=== PATIENT | male | born 1960 | race Caucasian/White ===

== ENCOUNTER 2018-09-29 10:50 | Emergency (ER) | payer MEDICAID ==
[~2018-09-29] VITALS: Ht 144.8 cm; Wt 61.7 kg
[~2018-09-29 10:50] MED LIST: ASCO500T93 PO; BISA-246 RC; CALC-1152 PO; CETI-32 PO; CETI10TA71 PO; CLON1TAB PO; CLON1TAB11 PO; FERR-20 PO; FLUT0.057 NS; LACT10SO4 PO; LITH300T7 PO; LOXA25CA PO; LOXA50CA PO; MAGN400S60 PO; MULT-153 PO; NAPH15SO OP; POLY17PD65 PO; SENN-74 PO; TETR15SO92 OP; [UNRECOGNIZED DRUG - CODE] OP; [UNRECOGNIZED DRUG - CODE] PO
--- NOTE | 2018-09-29 10:51 | NUR ---
PT BIBA ALS TO BED 10
[2018-09-29 10:55] VITALS: BP 134/74
--- NOTE | 2018-09-29 10:56 | NUR ---
Patient being evaluated by physician at bedside.
--- NOTE | 2018-09-29 11:11 | NUR ---
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 NO LOC. NO N/V. PT AT BASELINE PER CARGIVER. PT AWAKE AND ALERT, ABLE TO FOLLOW DIRECTIONS. PT NON VERBAL PER CAREGIVER. HX: PROFOUND INTELLECTUAL DISABILITIES, LEGALLY BLIND, CONGENTIAL RUBELLA SYNDROME, NONRHEUMATIC AORTIC VALVE DISORDER, SCAR CONDITIONS AND FIBROSIS OF THE SKIN RX: ZYRTEC, CLONOZEPAM, FERROUS SULFATE, FLONASE, LACTULOSE, LITHIUM CARBONATE, LOXAPINE, MULTIVITAMIN, POLYETHYLENE GLYCOL, PROPANOLOL, SENOKOT, GISELL-VITAMIN D, SYSTANE EYE DROPS, VITAMIN C, TYLENOL, AMOXICILLIN, DULCOLAX, FLEET ENEMA, MOM PT HAS BEEN EVALUATED BY ERMD. TOWNSEND FROM DAY PROGRAM AT BEDSIDE. SIDE RAILS UP X 2.
--- NOTE | 2018-09-29 11:30 | NUR ---
PT RETURNED FROM CT
--- NOTE | 2018-09-29 12:36 | NUR ---
PT REMAINS AWAKE AND ALERT, AT BASELINE. CAREGIVERS AT BEDSIDE. AWAITING DISPOSITION.
--- NOTE | 2018-09-29 13:30 | NUR ---
DR. NEGRON AT BEDSIDE TO SPEAK TO CAREGIVERS AND PT ABOUT DISCHARGE.
--- NOTE | 2018-09-29 13:42 | NUR ---
PT AMBULATED TO RESTROOM AND BACK TO [facility] WITH STEADY GAIT WITH CAREGIVER.
[2018-09-29 13:44] VITALS: BP 118/58
--- NOTE | 2018-09-29 13:44 | NUR ---
Patient discharged with v/s stable. Written and verbal after care instructions given and explained to CAREGIVERS/guardian. CAREGIVERS/Guardian verbalized understanding. Ambulatory WITH steady gait. All questions addressed prior to discharge. Advised to follow up with PMD.
== END 2018-09-29 13:44 | disposition home or self-care (01) ==
LOC: MED 10:50
DX: S09.90XA Unspecified injury of head, initial encounter (principal); H54.8 Legal blindness, as defined in USA; Z79.899 Other long term (current) drug therapy; W22.01XA Walked into wall, initial encounter; Y93.01 Activity, walking, marching and hiking; Y92.89 Other specified places as the place of occurrence of the external cause; Y99.8 Other external cause status
CPT/HCPCS: 70450; 72125; 99284

== ENCOUNTER 2022-01-11 20:13 | Inpatient (IN) | payer MEDICAID ==
[~2022-01-11] VITALS: Ht 142.2 cm; Wt 59.0 kg
[2022-01-11 20:13] VITALS: BP 102/59
[~2022-01-11 20:13] MED LIST changes: -CETI-32 PO; +CETI10TA81 PO; -MULT-153 PO; +MULT-2112 PO
--- NOTE | 2022-01-11 20:13 | NUR ---
ELIJAH FROM FACILITY WITH C/O FEVER, ACETAMINOPHEN 650 MG WAS GIVEN BY CAREGIVER
[2022-01-11] MEDS ORDERED: NACL 0.9% 1,000 ML IV ONE ×2 (21:35)
[2022-01-11 21:52] LABS: BASOPHILS # (AUTO) 0.1 K/uL (0.00-0.22); BASOPHILS % (AUTO) 0.7 % (0.0-2.0); EOSINOPHILS # (AUTO) 0.3 K/uL (0-0.4); HEMATOCRIT 32.6 % (36-52); HEMOGLOBIN 10.8 g/dL (12.0-18.0); LYMPHOCYTES % (AUTO) 9.2 % (20.5-51.1); MEAN CORPUSCULAR HEMOGLOBIN 33 pg (27-31); MEAN CORPUSCULAR HGB CONC 33 g/dL (33-37); MEAN CORPUSCULAR VOLUME 97.7 fL (80-94); MONOCYTES # (AUTO) 0.9 K/uL (0.8-1.0); MONOCYTES % (AUTO) 8.3 % (1.7-9.3); NEUTROPHILS # (AUTO) 8.6 K/uL (1.8-7.7); NEUTROPHILS % (AUTO) 78.8 % (42.2-75.2); PLATELET COUNT (AUTO) 231 K/uL (140-450); RED BLOOD CELL COUNT(AUTO) 3.33 MIL/uL (4.20-6.10); RED CELL DISTRIBUTION WIDTH 12.9 % (11.6-13.7); WHITE BLOOD COUNT (AUTO) 10.9 K/uL (4.8-10.8)
[2022-01-11] MEDS ORDERED: cefTRIAXone 1,000 MG VIAL ONE (22:17)
[2022-01-11 22:32] LABS: ALBUMIN 2.9 g/dL (3.4-5.0); ANION GAP 8.6 (8-16); ASPARTATE AMINOTRANSFERASE 24 U/L (15-37); CARBON DIOXIDE 27.6 mmol/L (21-32); CHLORIDE 104 mmol/L (98-107); CREATININE 1.1 mg/dL (0.6-1.3); GFR ARICAN-AMERICAN 88 mL/min (>90); GLUCOSE 127 mg/dL (74-106); POTASSIUM 4.2 mmol/L (3.5-5.1); SODIUM SERUM 136 mmol/L (136-145); TOTAL BILIRUBIN 0.3 mg/dL (0.0-1.0); UREA NITROGEN, BLOOD 17 mg/dL (7-18)
--- NOTE | 2022-01-11 22:41 | NUR ---
COVID/CLAU SWAB COLLECTED AND WALKED TO LAB
--- NOTE | 2022-01-11 22:58 | NUR ---
# 16 FR Kessler catheter with 10 ml utilizing sterile technique. Immediate return of 400 ml CLOUDY YELLOW urine noted. Bedside drainage bag placed below level of bladder. Urine sample collected and sent to lab. Pt tolerated procedure WELL.
[2022-01-11 23:00] LABS: APPEARANCE,URINE CLEAR (CLEAR); BILIRUBIN,URINE NEGATIVE (NEGATIVE); BLOOD, URINE TRACE-I (NEGATIVE); COLOR,URINE YELLOW (YELLOW); LEUKOCYTE ESTERASE ,URINE TRACE (NEGATIVE); NITRITE, URINE NEGATIVE (NEGATIVE); UGLUCOSE NEGATIVE (NEGATIVE)
[2022-01-11 23:13] LABS: RBC,URINE 0-5 /HPF (0-5)
--- NOTE | 2022-01-12 01:05 | NUR ---
PT SITTING UP IN BED. CALM, ACTING APPROPRIATE. UNLABORED BREATHING.
--- NOTE | 2022-01-12 03:45 | NUR ---
Patient will be admitted to care of DR PARDO. Admited to TELE. Will go to room 120B. Belongings list completed. Report to ALTON TRACY.
--- NOTE | 2022-01-12 03:50 | NUR ---
RECEIVED REPORT FROM ER NURSE FOR CONTINUITY OF CARE. PATIENT IS STABLE. BLIND, LOSS OF HEARING, NON VERBAL, A&O X 0, AORTIC VALVE DISORDER, AND CONGENITAL RUBELLA. CHIEF COMPLAINT WAS FEVER. DIAGNOSIS WAS FEVER, UTI, AND ELEVATED TROPONIN. IV SITE IS LEFT AC 20G WITH NO FLUIDS RUNNING. PATIENT IS LYING ON SIDE WITH ARMS TUCKED BEHIND BACK; IF MOVED PATIENT PUTS HIMSELF BACK IN THAT POSITION. PATIENT MOANS FROM TIME TO TIME. ALL SAFETY MEASURES ARE IN PLACE, CALL LIGHT IS WITHIN REACH. VITALS WERE: BP 159/86, HR 104, O2 94, RR 20, TEMP 98.3. WILL CONTINUE TO MONITOR PATIENT.
[2022-01-12 04:00] VITALS: BP 155/86
[2022-01-12 05:55] LABS: ANION GAP 8.1 (8-16); CARBON DIOXIDE 26.9 mmol/L (21-32)
[2022-01-12 06:14] LABS: BASOPHILS # (AUTO) 0.1 K/uL (0.00-0.22); BASOPHILS % (AUTO) 0.5 % (0.0-2.0); EOSINOPHILS # (AUTO) 0.2 K/uL (0-0.4); EOSINOPHILS % (AUTO) 1.7 % (0.0-4.0); HEMATOCRIT 30.7 % (36-52); HEMOGLOBIN 10.2 g/dL (12.0-18.0); LYMPHOCYTES # (AUTO) 1.4 K/uL (2.0-11.5); LYMPHOCYTES % (AUTO) 11.9 % (20.5-51.1); MEAN CORPUSCULAR HEMOGLOBIN 33 pg (27-31); MEAN CORPUSCULAR HGB CONC 33 g/dL (33-37); MEAN CORPUSCULAR VOLUME 97.5 fL (80-94); NEUTROPHILS # (AUTO) 8.9 K/uL (1.8-7.7); NEUTROPHILS % (AUTO) 76.9 % (42.2-75.2); PLATELET COUNT (AUTO) 222 K/uL (140-450); RED BLOOD CELL COUNT(AUTO) 3.15 MIL/uL (4.20-6.10); RED CELL DISTRIBUTION WIDTH 12.6 % (11.6-13.7); WHITE BLOOD COUNT (AUTO) 11.6 K/uL (4.8-10.8)
[2022-01-12] MEDS ORDERED: LOVENOX 1MG/KG Q12H SUBQ SCH (07:20)
--- NOTE | 2022-01-12 07:30 | NUR ---
RECEIVED REPORT FROM NIGHTSHIFT NURSE LAKE FOR CONTINUITY OF CARE. PT IS CURRENTLY SLEEPING, APHASIC, BLIND AND VERY HARD OF HEARING. PT IS BREATHING EVEN, REGULAR AND UNLABORED ON ROOM AIR. PT HAS MOMIN CATHETER PATENT AND HANGING TO GRAVITY. PT IS INCONTINENT OF THE BOWELS AND BEDBOUND. PT IN STABLE CONDITION.
--- NOTE | 2022-01-12 07:32 | NUR ---
ENDORSED TO MORNING SHIFT FOR CONTINUITY OF CARE. PATIENT IS STABLE.
[2022-01-12 08:00] VITALS: BP 139/82
[2022-01-12] MEDS ORDERED: HYDROcodone/APAP 7.5/325 MG 1 TAB PO PRN (08:30)
[2022-01-12] MEDS ORDERED: ZOLPIDEM 5 MG TAB PO PRN (08:30)
[2022-01-12] MEDS ORDERED: ACETAMINOPHEN 325 MG TAB PO PRN (08:30)
[2022-01-12] MEDS ORDERED: NITROGLYCERIN 0.4 MG TAB SL PRN (08:30)
[2022-01-12] MEDS ORDERED: DOCUSATE SODIUM 100 MG GELCAP PO PRN (08:30)
[2022-01-12] MEDS ORDERED: POTASSIUM CHLORIDE 10 MEQ TABER PO PRN (08:30)
[2022-01-12] MEDS ORDERED: ONDANSETRON 4 MG/2 ML VIAL IM/IVP PRN (08:30)
[2022-01-12] MEDS ORDERED: guaiFENesin DM 200/20 MG-10 ML 10 ML UDC PO PRN (08:30)
[2022-01-12] MEDS ORDERED: LITHIUM CARBONATE 900 MG PO SCH (09:00)
[2022-01-12] MEDS: ENOXAPARIN 60 MG/0.6 ML SYR SUBQ SCH ×2 (09:00→21:00)
[2022-01-12] MEDS ORDERED: ENOXAPARIN 60 MG/0.6 ML SYR SUBQ SCH (09:00)
[2022-01-12 09:23] LABS: PROTHROMBIN TIME 11.3 secs (10.8-13.4)
[2022-01-12 09:33] LABS: CHOL/HDL RATIO 2.9 (1-4.5); MAGNESIUM 1.9 mg/dL (1.8-2.4); PHOSPHORUS 3.2 mg/dL (2.5-4.9); THYROID STIMULATING HORMONE 0.99 uIU/mL (0.34-3.74)
[2022-01-12] MEDS: ACETAMINOPHEN 650 MG SUPP RC PRN (09:42)
--- NOTE | 2022-01-12 09:42 | NUR ---
PER ENGRAVER OPTICAL FRAMES, PT HAD A FEVER OF 100.4. INITIATED COOLING MEASURES WITH ICE PACKS AND MEDICATED WITH PRN TYLENOL SUPPOSITORY.
[2022-01-12] MEDS: METOPROLOL 25 MG TAB PO SCH ×2 (09:43→21:00)
[2022-01-12] MEDS: ECOTRIN 81 MG TABEC PO SCH (09:43)
[2022-01-12] MEDS: lisinopriL 5 MG TAB PO SCH (09:44)
[2022-01-12] MEDS: PANTOPRAZOLE 40 MG TABEC PO SCH (09:57)
--- NOTE | 2022-01-12 11:15 | NUR ---
PT VISUALLY ASSESSED, IN STABLE CONDITION. NO SIGNS OF DISTRESS OR PAIN NOTED.
[2022-01-12 12:00] VITALS: BP 130/56
[2022-01-12] MEDS: PIPERACILLIN/TAZOBACTAM 3.375 GM in DEXTROSE 5% 50 ML IV SCH ×2 (13:09→17:20)
--- NOTE | 2022-01-12 13:41 | NUR ---
STAFF FROM [facility] VISITED PT TO BRING IN LOXAPINE HOME MEDICATIONS. INSERTED 18G IN UPPER LEFT ARM FOR IV ABX DUE TO PT FLEXING ARM FREQUENTLY AND OBSTRUCTING IV IN AC. NO SIGNS OF DISTRESS OR PAIN NOTED.
--- NOTE | 2022-01-12 15:00 | NUR ---
PT VISUALLY ASSESSED, NO SIGNS OF PAIN OR DISTRESS NOTED.
[2022-01-12 16:00] VITALS: BP 113/56
[2022-01-12] MEDS: ATORVASTATIN 20 MG TAB PO SCH (17:20)
--- NOTE | 2022-01-12 17:45 | NUR ---
PT VISUALLY ASSESSED, NO SIGNS OF PAIN OR DISTRESS NOTED.
[2022-01-12 18:48] LABS: BARBITURATE, URINE NEGATIVE ng/ml (NEG <=200); BENZODIAZEPINE, URINE NEGATIVE ng/mL (NEG <=200); CANNABINOID, URINE NEGATIVE ng/mL (NEG <=50); COCAINE, URINE NEGATIVE ng/mL (NEG <=300); OPIATE, URINE NEGATIVE ng/mL (NEG <=2000); PHENCYCLIDINE SCREEN,URINE NEGATIVE ng/mL (NEG <=25)
--- NOTE | 2022-01-12 19:37 | NUR ---
ENDORSED PT TO NIGHTSHIFT NURSE IRIS FOR CONTINUITY OF CARE, PT IN STABLE CONDITION.
[2022-01-12 20:00] VITALS: BP 95/56
[2022-01-12] MEDS: LOXAPINE 25 MG PO SCH (20:00)
[2022-01-12] MEDS: clonazePAM 0.5 MG TAB PO SCH (21:00)
[2022-01-12] MEDS ORDERED: CLONAZEPAM PO SCH (21:00)
[2022-01-13] VITALS: BP 156/53
--- NOTE | 2022-01-13 01:38 | NUR ---
PATIENT ON MONITOR SINUS TACH HR. 105 TEMP. 101 GIVEN TYL 650MG 2300 PATIENT ON ROOM AIR SAT 98% PATIENT IS APHASIC CRUSH PILLS GIVEN WITH APPLE SAUCE.PATIENT HAS F/C DRAINING ROVERTO URINE. NO DISTRESS AT THIS TIME.
[2022-01-13] MEDS: ACETAMINOPHEN 650 MG SUPP RC PRN (03:32)
[2022-01-13 04:00] VITALS: BP 150/52
[2022-01-13] MEDS: PIPERACILLIN/TAZOBACTAM 3.375 GM in DEXTROSE 5% 50 ML IV SCH ×5 (06:00→18:07)
[2022-01-13] MEDS: LOXAPINE 25 MG PO SCH ×2 (07:00→20:00)
[2022-01-13 07:08] LABS: BASOPHILS # (AUTO) 0.1 K/uL (0.00-0.22); BASOPHILS % (AUTO) 0.7 % (0.0-2.0); EOSINOPHILS # (AUTO) 0.4 K/uL (0-0.4); EOSINOPHILS % (AUTO) 4.1 % (0.0-4.0); HEMATOCRIT 30.7 % (36-52); HEMOGLOBIN 10.2 g/dL (12.0-18.0); LYMPHOCYTES # (AUTO) 1.5 K/uL (2.0-11.5); LYMPHOCYTES % (AUTO) 17.1 % (20.5-51.1); MEAN CORPUSCULAR HEMOGLOBIN 32 pg (27-31); MEAN CORPUSCULAR HGB CONC 33 g/dL (33-37); MEAN CORPUSCULAR VOLUME 97.2 fL (80-94); MONOCYTES # (AUTO) 0.9 K/uL (0.8-1.0); NEUTROPHILS # (AUTO) 5.9 K/uL (1.8-7.7); NEUTROPHILS % (AUTO) 68.1 % (42.2-75.2); PLATELET COUNT (AUTO) 220 K/uL (140-450); RED BLOOD CELL COUNT(AUTO) 3.15 MIL/uL (4.20-6.10); RED CELL DISTRIBUTION WIDTH 12.9 % (11.6-13.7); WHITE BLOOD COUNT (AUTO) 8.7 K/uL (4.8-10.8)
--- NOTE | 2022-01-13 07:10 | NUR ---
RECEIVED REPORT FROM NIGHTSHIFT NURSE CLEMONS FOR CONTINUITY OF CARE. PT IS CURRENTLY SLEEPING, APHASIC. PT IS BREATHING EVEN, REGULAR AND UNLABORED ON ROOM AIR. PT HAS MOMIN CATHETER PATENT AND HANGING TO GRAVITY. PT IS INCONTINENT OF THE BOWELS, SKIN INTACT ON BEDREST. PT IN STABLE CONDITION.
[2022-01-13 07:15] LABS: ANION GAP 9.9 (8-16); CREATININE 1.2 mg/dL (0.6-1.3); POTASSIUM 3.9 mmol/L (3.5-5.1)
[2022-01-13 08:00] VITALS: BP 125/76
[2022-01-13 08:07] LABS: FOLIC ACID > 20.00 ng/mL (>3.0)
--- NOTE | 2022-01-13 08:11 | NUR ---
PATIENT HAS BEEN SCREENED AND CATEGORIZED MODERATE NUTRITION RISK. PATIENT WILL BE SEEN WITHIN 3-5 DAYS OF ADMISSION. 01/12/22-01/16/[address]
[2022-01-13] MEDS: LITHIUM CARBONATE 300 MG TAB PO SCH ×3 (09:00→18:06)
[2022-01-13] MEDS: lisinopriL 5 MG TAB PO SCH (09:01)
[2022-01-13] MEDS: ECOTRIN 81 MG TABEC PO SCH (09:02)
[2022-01-13] MEDS: METOPROLOL 25 MG TAB PO SCH ×2 (09:03→21:00)
[2022-01-13] MEDS: PANTOPRAZOLE 40 MG TABEC PO SCH (09:04)
[2022-01-13] MEDS: ENOXAPARIN 60 MG/0.6 ML SYR SUBQ SCH (09:13)
[2022-01-13] MEDS ORDERED: VANCOMYCIN PER PHARMACY MC PRN ×2 (11:00→11:10)
[2022-01-13 12:00] VITALS: BP_SYST 116; BP_SYST 120; BP_DIAS 60; BP_DIAS 62
[2022-01-13] MEDS: VANCOMYCIN 750 MG in DEXTROSE 5% 250 ML IV SCH (13:12)
[2022-01-13 16:00] VITALS: BP 120/60
[2022-01-13] MEDS: ATORVASTATIN 20 MG TAB PO SCH (18:06)
[2022-01-13] MEDS: FERROUS SULFATE 325 MG TABEC PO SCH (18:06)
--- NOTE | 2022-01-13 19:38 | NUR ---
ENDORSED PT TO NIGHTSHIFT NURSE IRIS FOR CONTINUITY CARE. PT IN STABLE CONDITION.
[2022-01-13 20:00] VITALS: BP 107/59
[2022-01-13] MEDS: clonazePAM 0.5 MG TAB PO SCH (21:00)
[2022-01-13 23:28] LABS: FERRITIN 968 ng/mL (30 - 400); TRANSFERRIN 127 mg/dL (200 - 370)
[2022-01-14] VITALS: BP 108/56
--- NOTE | 2022-01-14 00:01 | NUR ---
PATIENT AWAKE APHASIC ON MONITOR SINUS TACH HR. 125. PATIENT WAS CLEANED UP AND LINEN CHANGE. X1 WITH DARK GREEN IN COLOR STOOL. HAD 1400 CC URINE OUT F/C 2200. PATIENT TAKES MEDS WITH CUSTARD CRUSH PILLS. DRINKS WATER WELL WITH STRAW. NO DISTRESS NOTED.
[2022-01-14 04:00] VITALS: BP 125/87
[2022-01-14 05:39] LABS: BASOPHILS # (AUTO) 0.1 K/uL (0.00-0.22); BASOPHILS % (AUTO) 0.7 % (0.0-2.0); EOSINOPHILS # (AUTO) 0.8 K/uL (0-0.4); EOSINOPHILS % (AUTO) 10.8 % (0.0-4.0); HEMATOCRIT 31.4 % (36-52); HEMOGLOBIN 10.5 g/dL (12.0-18.0); LYMPHOCYTES # (AUTO) 1.6 K/uL (2.0-11.5); LYMPHOCYTES % (AUTO) 21.6 % (20.5-51.1); MEAN CORPUSCULAR HEMOGLOBIN 33 pg (27-31); MEAN CORPUSCULAR HGB CONC 33 g/dL (33-37); MEAN CORPUSCULAR VOLUME 97.8 fL (80-94); MONOCYTES # (AUTO) 0.6 K/uL (0.8-1.0); MONOCYTES % (AUTO) 7.7 % (1.7-9.3); NEUTROPHILS # (AUTO) 4.5 K/uL (1.8-7.7); NEUTROPHILS % (AUTO) 59.2 % (42.2-75.2); PLATELET COUNT (AUTO) 220 K/uL (140-450); RED BLOOD CELL COUNT(AUTO) 3.21 MIL/uL (4.20-6.10); RED CELL DISTRIBUTION WIDTH 12.8 % (11.6-13.7); WHITE BLOOD COUNT (AUTO) 7.6 K/uL (4.8-10.8)
[2022-01-14 05:53] LABS: CARBON DIOXIDE 27.8 mmol/L (21-32); CREATININE 1.2 mg/dL (0.6-1.3); POTASSIUM 3.8 mmol/L (3.5-5.1)
[2022-01-14] MEDS: PIPERACILLIN/TAZOBACTAM 3.375 GM in DEXTROSE 5% 50 ML IV SCH ×5 (05:54→17:47)
[2022-01-14] MEDS: VANCOMYCIN 750 MG in DEXTROSE 5% 250 ML IV SCH (05:55)
[2022-01-14] MEDS: LOXAPINE 25 MG PO SCH ×2 (06:41→20:08)
--- NOTE | 2022-01-14 07:30 | NUR ---
RECEIVED PT CARE AND REPORT FROM NOC SHIFT. PT IS RESTING IN BED WITH OU CLOSED ON RIGHT SIDE. NO VISIBLE S/S OF DISTRESS OR DISCOMFORT. DENIES ANY PAIN OR SOB. CALL LIGHT WITHIN REACH, ALL NEEDS MET AT THIS TIME.
[2022-01-14 08:00] VITALS: BP 127/75
--- NOTE | 2022-01-14 08:56 | NUR ---
PT. WITH LOW NIRAV SCALE AT MODERATE TO HIGH RISK, CONTINUE TO FOLLOW PRESSURE INJURY PREVENTION INTERVENTIONS. -POSITIONING: TURN AND REPOSITION PATIENT Q 2H OR SOONER USE PILLOWS TO KEEP BONY PROMINENCES FROM DIRECT CONTACT WITH SURFACES USE REPOSITIONING WEDGES TO PROVIDE 30-DEGREE ANGLE FOR SIDE LYING POSITIONS OFFLOADING OR FOAM DRESSING TO ALL TUBING TO PREVENT MEDICAL DEVICES RELATED PRESSURE INJURY -RE-EVALUATING AND MANAGING INCONTINENCE MONITOR SKIN CONDITION DURING POSITION CHANGE DO NOT MASSAGE REDNESS, BONY PROMINENCES FREQUENT WALTER-CARE AND PROVIDE BARRIER CREAMS PRN IF SOILING MOISTURE CONTROL BY OFFER BED ZIMMER/URINAL /ABSORBENT PAD TO WICK AND HOLD MOISTURE KEEP SKIN DRY AND PROTECT FROM FRICTION -MANAGE FRICTION/SHEAR/MOBILITY KEEP HOB AT THE LOWEST LEVEL OF ELEVATION NO MORE THAN 30 DEGREE UNLESS OTHERWISE CONTRAINDICATED USE LIFT SHEET OR TRANSFER DEVICE TO MOVE PATIENT AND PREVENT LATERAL SHEER. PROTECT HEELS, ELBOWS BONY PROMINENCES WITH SKIN BERRIES OR FOAM DRESSING IF EXPOSED TO FRICTION OFFLOAD BILATERAL HEELS BY PLACING PILLOWS UNDER CALVES AT ALL TIMES, UNLESS OTHERWISE CONTRAINDICATED -PRESSURE REDISTRIBUTION SURFACE THERAPY ANGELA ISOFLEX MATTRESS -NUTRITION: PLEASE FOLLOW RD RECOMMENDATIONS AND OFFER NUTRITION SUPPLEMENTS IF ORDERED. PLEASE CONTACT WOUND CARE NURSE FOR ANY QUESTION AND CHANGE OF WOUND CONDITION.
[2022-01-14] MEDS: ECOTRIN 81 MG TABEC PO SCH (09:45)
[2022-01-14] MEDS: lisinopriL 5 MG TAB PO SCH (09:46)
[2022-01-14] MEDS: METOPROLOL 25 MG TAB PO SCH ×2 (09:46→20:09)
[2022-01-14] MEDS: ENOXAPARIN 40 MG/0.4 ML SYR SUBQ SCH (09:47)
[2022-01-14] MEDS: LITHIUM CARBONATE 300 MG TAB PO SCH ×3 (09:48→17:48)
[2022-01-14] MEDS: PANTOPRAZOLE 40 MG TABEC PO SCH (09:48)
[2022-01-14] MEDS: FERROUS SULFATE 325 MG TABEC PO SCH ×2 (09:48→17:47)
--- NOTE | 2022-01-14 11:10 | NUR ---
DC PLANNIN YRS OLD MALE PATIENT WAS ADMITTED FROM [facility] WITH A DX OF FEVER , UTI AND ELEVATED TROPONIN. TROP ON ARRIVAL 589,631 . TEMP 100.4 PATIENT HAS A HX OF INTELLECTUAL DISABILITY NON-VERBAL AND LEGALLY BLIND. CXR SHOWED CARDIOMEGALY WITH MILD PULMONARY VASCULAR CONGESTION. PCR COVID NEGATIVE. BLOOD AND URINE CULTURE PENDING. ADMINISTERED IVF, IV ABX VANCOMYCIN AND ZOSYN AND CONTINUED HOME MEDS. SEEN BY CARDIO DR MCGOVERN AND ID DR MTZ. DC PLAN AWAITING FOR FINAL CULTURE RESULTS. CM TO FOLLOW Addendum: 01/16/22 at 1210 by Ruthann Jones RN DC PLANNING: STILL AWAITING FOR THE FINAL RESULT AND SENSITIVITY OF BLOOD AND URINE CULTURE . CONTINUE VANCO AND ZOSYN IV ABX. ID, AND CARDIO FOLLOWING. DC PLAN TO RETURN TO [facility] WHEN STABLE. CM TO FOLLOW Addendum: 01/16/22 at 1214 by Ruthann Jones RN DC PLANNING: CALLED [facility] SPOKE WITH MADELAINE STATED IF PATIENT NEEDS IV ABX THEY ARE NOT ABLE TO GIVE IT AND PATIENT HAS TO GO TO SNF AND PREFERRED PATIENT TO GO TO [facility]. CM TO FOLLOW
[2022-01-14 12:00] VITALS: BP 115/63
--- NOTE | 2022-01-14 12:26 | NUR ---
FDI REPORT RECEIVED. FDI EDUCATION NOT APPLICABLE D/T PT FROM SNF. KALINA TORIBIO RD
--- NOTE | 2022-01-14 15:48 | NUR ---
P.T. NOTES P.T. EVAL COMPLETED; REFER TO EVAL FOR DETAILS.
[2022-01-14 16:00] VITALS: BP 112/57
[2022-01-14] MEDS: ATORVASTATIN 20 MG TAB PO SCH (17:47)
--- NOTE | 2022-01-14 18:21 | NUR ---
PT IS RESTING IN BED ON RIGHT SIDE, ALERT AND APHASIC. NO VISIBLE S/S OF DISTRESS, DISCOMFORT, PAIN OR SOB. CALL LIGHT IS WITHIN REACH, ALL NEEDS MET AT THIS TIME. WILL ENDORSE TO NOC SHIFT.
--- NOTE | 2022-01-14 19:30 | NUR ---
RECEIVED REPORT FROM AM SHIFT NURSE FOR CONTINUITY OF CARE. PT AWAKE ON BED, BREATHING EQUAL AND UNLABORED, ON ROOM AIR. NO DISTRESS NOTED. IV ON LAC G 20 AND HERVE G18, SL.MOMIN IN PLACE, DRAINING WELL. ALL PRECAUTIONS IN PLACE. CALL LIGHT WITHIN REACH. WILL CONTINUE TO MONITOR.
[2022-01-14 20:00] VITALS: BP 127/75
[2022-01-14] MEDS: clonazePAM 0.5 MG TAB PO SCH (20:08)
--- NOTE | 2022-01-14 21:00 | NUR ---
SCHEDULED MEDICATIONS GIVEN. PT TOLERATED WELL. NO ACUTE DRUG REACTION NOTED. ALL PRECAUTIONS IN PLACE. WILL CONTINUE TO MONITOR.
[2022-01-15] VITALS: BP 134/77
--- NOTE | 2022-01-15 | NUR ---
SCHEDULED MEDICATIONS GIVEN. PT TOLERATED WELL. NO ACUTE DRUG REACTION NOTED. ALL PRECAUTIONS IN PLACE. WILL CONTINUE TO MONITOR.
[2022-01-15] MEDS: PIPERACILLIN/TAZOBACTAM 3.375 GM in DEXTROSE 5% 50 ML IV SCH ×4 (00:12→18:07)
[2022-01-15] MEDS: VANCOMYCIN 750 MG in DEXTROSE 5% 250 ML IV SCH (00:13)
--- NOTE | 2022-01-15 02:30 | NUR ---
PT CHANGED AND REPOSITIONED. PT TOLERATED WELL. WILL CONTINUE TO MONITOR.
--- NOTE | 2022-01-15 03:21 | NUR ---
SCHEDULED MEDICATIONS GIVEN. PT TOLERATED WELL. NO ACUTE DRUG REACTION NOTED. ALL PRECAUTIONS IN PLACE. WILL CONTINUE TO MONITOR.
--- NOTE | 2022-01-15 03:31 | NUR ---
PATIENT ASLEEP,RESPIRATIONS EVEN AND UNLABORED,NO DISTRESS NOTED
[2022-01-15 04:00] VITALS: BP 103/45
[2022-01-15 06:08] LABS: CARBON DIOXIDE 27.6 mmol/L (21-32); CREATININE 1.2 mg/dL (0.6-1.3); POTASSIUM 3.6 mmol/L (3.5-5.1)
[2022-01-15] MEDS: LOXAPINE 25 MG PO SCH ×2 (06:24→20:00)
[2022-01-15 08:00] VITALS: BP 93/54
--- NOTE | 2022-01-15 08:00 | NUR ---
RECEIVED REPORT FROM REBEKAH DANG FOR CONTINUITY OF CARE. PT LETHARGIC. RESPONSIVE TO TACTILE STIMULI. NO SOB OR RESPIRATORY DISTRESS. ON RA. HOB ELEVATED. PT REPOSITIONED. HERVE #18 TKO. NEEDS ALL MET AT THIS TIME. SAFETY MEASURES IN PLACE.
[2022-01-15] MEDS: lisinopriL 5 MG TAB PO SCH (09:00)
[2022-01-15] MEDS: METOPROLOL 25 MG TAB PO SCH ×2 (09:00→21:00)
[2022-01-15 09:23] LABS: BASOPHILS # (AUTO) 0.1 K/uL (0.00-0.22); BASOPHILS % (AUTO) 0.8 % (0.0-2.0); EOSINOPHILS % (AUTO) 11.1 % (0.0-4.0); HEMATOCRIT 33.6 % (36-52); HEMOGLOBIN 11.2 g/dL (12.0-18.0); LYMPHOCYTES # (AUTO) 1.6 K/uL (2.0-11.5); LYMPHOCYTES % (AUTO) 17.3 % (20.5-51.1); MEAN CORPUSCULAR HEMOGLOBIN 33 pg (27-31); MEAN CORPUSCULAR HGB CONC 33 g/dL (33-37); MEAN CORPUSCULAR VOLUME 98.5 fL (80-94); MONOCYTES # (AUTO) 0.8 K/uL (0.8-1.0); MONOCYTES % (AUTO) 8.6 % (1.7-9.3); NEUTROPHILS # (AUTO) 5.7 K/uL (1.8-7.7); NEUTROPHILS % (AUTO) 62.2 % (42.2-75.2); PLATELET COUNT (AUTO) 258 K/uL (140-450); RED BLOOD CELL COUNT(AUTO) 3.41 MIL/uL (4.20-6.10); RED CELL DISTRIBUTION WIDTH 12.7 % (11.6-13.7); WHITE BLOOD COUNT (AUTO) 9.1 K/uL (4.8-10.8)
[2022-01-15] MEDS: ENOXAPARIN 40 MG/0.4 ML SYR SUBQ SCH (09:56)
[2022-01-15] MEDS: ECOTRIN 81 MG TABEC PO SCH (09:58)
[2022-01-15] MEDS: PANTOPRAZOLE 40 MG TABEC PO SCH (09:58)
[2022-01-15] MEDS: LITHIUM CARBONATE 300 MG TAB PO SCH ×3 (09:59→17:00)
[2022-01-15] MEDS: FERROUS SULFATE 325 MG TABEC PO SCH ×2 (10:01→17:00)
[2022-01-15 12:00] VITALS: BP 103/55
--- NOTE | 2022-01-15 13:00 | NUR ---
PT NOT TOLERATING PUREED FOOD. PT POCKETING FOOD IN MOUTH AND NOT SWALLOWING. PT SUCTIONED WITH MOUTH CLEAR. O2 SATURATION @ 95% AROUND PT'S BASELINE. PT REPOSITIONED, HOB ELEVATED. NEEDS ALL MET AT THIS TIME. SAFETY MEASURES IN PLACE.
[2022-01-15] MEDS: VANCOMYCIN 1,000 MG in DEXTROSE 5% 250 ML IV SCH (13:15)
[2022-01-15 16:00] VITALS: BP 118/69
[2022-01-15] MEDS: ATORVASTATIN 20 MG TAB PO SCH (17:00)
--- NOTE | 2022-01-15 18:00 | NUR ---
CONTACTED MD REGARDING PT POCKETING FOOD IN MOUTH. NEW ORDER FOR NPO AND ST EVALUATION.
--- NOTE | 2022-01-15 18:11 | NUR ---
1800 DOSE OF ZOSYN ADMIN 1VPB ORDERED. LEFT UPPER ARM IV SITE CLEAN, FREE OF SIGNS OF INFECTION, WITH DRESSING DRY & INTACT.
--- NOTE | 2022-01-15 18:59 | NUR ---
REPORT GIVEN TO NIGHTSSDKAUSHAL RNCANDELARIO FOR CONTINUITY OF CARE.
--- NOTE | 2022-01-15 19:00 | NUR ---
RECEIVED REPORT FROM CANDELARIO DANG, PATIENT WAS STABLE AT CHANGE OF SHIFT. PATIENT WAS RECEIVED IN BED ASLEEP NON VERBAL. PATIENT IS BLIND AND NURSING WAS SPEAKING TO PATIENT FOR MENTAL STIMULATION. SIDE RAILS UP X 4 FOR SAFETY. NURSING NOTED PATIENT BREATHING UNLABORED ON ROOM AIR. PATIENT IS NOW NPO STATUS BECAUSE OF PREVIOUS SHIFT NOTED DIFFICULTY SWALLOWING AND SWALLOW EVALUATION TOMORROW. NURSING WILL FRQUENT THE ROOM TO ANTICIPATE NEED AND KEEP CLEAN AND DRY. CALL LIGHT WITHIN REACH AVAILABLE ENTERTAINMENT PURPOSE. NO FACIAL GRIMACING OF PAIN/DISCOMFORT. [email or web address]
[2022-01-15 20:00] VITALS: BP 113/70
[2022-01-15] MEDS: clonazePAM 0.5 MG TAB PO SCH (21:00)
--- NOTE | 2022-01-15 21:48 | NUR ---
PATIENT REMAINS AWAKE WITH TV ON TO LISTEN. SIDE RAILS UP X 4. CALL LIGHT WITHIN REACH FOR ASSISTANCE. NPO AND NOT ORAL MEDIATIONS GIVEN BECAUSE OF SWALLOW EVALUATION FOR TOMORROW. NURSING WILL MAKE ROUNDS TO ANTICIPATE NEEDS OR ASSISTANCE. [email or web address]
--- NOTE | 2022-01-15 23:50 | NUR ---
PATIENT WAS CHANGED IN POSITION IN THE BED. PATIENT REMAINS CLEAN AND DRY. NO NOTED INCIDENT OF PAIN. NOTED INCIDENT OR RESPIRATORY DISTRESS. REMAINS ASLEEP AT THIS TIME. SIDE RAILS UP X 4. CALL LIGHT WITHIN REACH FOR TV. NURSING WILL MAKE ROUNDS TO ANTICIPATE NEEDS OR ASSISTANCE. [email or web address]
[2022-01-16] VITALS: BP 113/70
--- NOTE | 2022-01-16 | NUR ---
PATIENT IN BED MUMBLES WHEN HIS NAME IS CALLED. SIDE RAILS UP X 4. CALL LIGHT WITHIN REACH FOR ENTERTAINMENT. NURSING WILL MAKE ROUNDS TO ANTICIPATE NEEDS OR ASSISTANCE. [email or web address]
[2022-01-16] MEDS: VANCOMYCIN 1,000 MG in DEXTROSE 5% 250 ML IV SCH ×2 (01:00→11:59)
[2022-01-16] MEDS: PIPERACILLIN/TAZOBACTAM 3.375 GM in DEXTROSE 5% 50 ML IV SCH ×5 (01:01→23:37)
--- NOTE | 2022-01-16 02:45 | NUR ---
PATIENT REMAINS ASLEEP AT THIS TIME. SIDE RAILS UP X 4. CALL LIGHT WITHIN REACH FOR LISTENING TO THE TV. PATIENT MOMIN URINE OUT PUT WAS NOTED YELLOW WITH SENTIMENT. CHEST RISING AND FALLING EVENLY. NO NOTED FACIAL GRIMACING TO INDICATE PAIN. PATIENT REMAINS CLEAN AND DRY AT THIS TIME. NURSING WILL MAKE ROUNDS TO ANTICIPATE NEEDS OR ASSISTANCE. [email or web address]
[2022-01-16 04:00] VITALS: BP 121/64
--- NOTE | 2022-01-16 05:34 | NUR ---
NURSING WITH PRODUCTION MACHINE TENDER CHANGED PATIENT AND TOTAL CARE. HAD NO NOTE BOWEL MOVEMENTS. REPOSITIONED AND HEAD OF BED ELEVATED TO PREVENT ASPIRATION. SIDE RAILS UP X 4 FOR SAFETY. NO NOTED SEIZURE ACTIVITY AT THIS TIME. NO FACIAL GRIMACING FOR PAIN. NO NOTED RESPIRATORY DISTRESS. CALL LIGHT IS USED FOR AUDIO STIMULATION. NURSING WILL FREQUENT THIS ROOM FOR ANTICIPATED NEEDS. [email or web address]
[2022-01-16 05:45] LABS: BASOPHILS # (AUTO) 0.1 K/uL (0.00-0.22); BASOPHILS % (AUTO) 0.8 % (0.0-2.0); EOSINOPHILS # (AUTO) 0.9 K/uL (0-0.4); EOSINOPHILS % (AUTO) 9.9 % (0.0-4.0); HEMATOCRIT 33.4 % (36-52); HEMOGLOBIN 11.1 g/dL (12.0-18.0); LYMPHOCYTES # (AUTO) 1.2 K/uL (2.0-11.5); LYMPHOCYTES % (AUTO) 13.1 % (20.5-51.1); MEAN CORPUSCULAR HEMOGLOBIN 33 pg (27-31); MEAN CORPUSCULAR HGB CONC 33 g/dL (33-37); MEAN CORPUSCULAR VOLUME 97.8 fL (80-94); MONOCYTES # (AUTO) 0.8 K/uL (0.8-1.0); MONOCYTES % (AUTO) 8.4 % (1.7-9.3); NEUTROPHILS # (AUTO) 6.3 K/uL (1.8-7.7); NEUTROPHILS % (AUTO) 67.8 % (42.2-75.2); PLATELET COUNT (AUTO) 266 K/uL (140-450); RED BLOOD CELL COUNT(AUTO) 3.41 MIL/uL (4.20-6.10); RED CELL DISTRIBUTION WIDTH 12.9 % (11.6-13.7); WHITE BLOOD COUNT (AUTO) 9.3 K/uL (4.8-10.8)
[2022-01-16 06:19] LABS: ANION GAP 10.3 (8-16); CARBON DIOXIDE 27.5 mmol/L (21-32); CREATININE 1.4 mg/dL (0.6-1.3); POTASSIUM 3.8 mmol/L (3.5-5.1)
[2022-01-16] MEDS: LOXAPINE 25 MG PO SCH ×2 (07:00→20:42)
--- NOTE | 2022-01-16 07:21 | NUR ---
PATIENT WAS ENDORSED TO MARV RN, PATIENT WAS STABLE AT CHANGE OF SHIFT. [email or web address]
--- NOTE | 2022-01-16 07:30 | NUR ---
RECEIVED REPORT FROM DALE WELCH. PT AWAKE AND ALERT. NO SOB NOTED. HOB ELEVATED. RR EVEN & UNLABORED. ON RA. PT IS NPO. MOMIN VIA GRAVITY. RAC #20 AND HERVE #18 SL. NEEDS ALL MET AT THIS TIME. SAFETY MEASURES IN PLACE.
[2022-01-16] MEDS: FERROUS SULFATE 325 MG TABEC PO SCH ×2 (07:48→16:27)
[2022-01-16 08:00] VITALS: BP 148/68
[2022-01-16] MEDS: ENOXAPARIN 40 MG/0.4 ML SYR SUBQ SCH (08:48)
[2022-01-16] MEDS: ECOTRIN 81 MG TABEC PO SCH (08:54)
[2022-01-16] MEDS: METOPROLOL 25 MG TAB PO SCH ×2 (08:54→20:42)
[2022-01-16] MEDS: PANTOPRAZOLE 40 MG TABEC PO SCH (08:54)
[2022-01-16] MEDS: LITHIUM CARBONATE 300 MG TAB PO SCH ×3 (08:54→16:27)
[2022-01-16] MEDS: lisinopriL 5 MG TAB PO SCH (08:55)
--- NOTE | 2022-01-16 12:00 | NUR ---
VANCOMYCIN HELD. VANCO TROUGH @ 28.3.
--- NOTE | 2022-01-16 14:39 | NUR ---
01/16/22 RD INITIAL ASSESSMENT COMPLETED PLEASE REFER TO NUTRITION ASSESSMENT UNDER CARE ACTIVITY FOR ESTIMATED NUTRITIONAL NEEDS. 1. RECOMMEND FULL LIQUID DIET PER SLT RECOMMENDATIONS 2. RECOMMEND ENSURE BID FOR NUTRITION SUPPORT 3. RD TO FOLLOW-UP 2-3 DAYS, HIGH RISK KALINA TORIBIO RD
[2022-01-16 16:00] VITALS: BP 132/74
[2022-01-16] MEDS: ATORVASTATIN 20 MG TAB PO SCH (16:27)
--- NOTE | 2022-01-16 17:30 | NUR ---
MD ORDER FOR FULL THIN LIQUID DIET. 1:1 FEEDER.
--- NOTE | 2022-01-16 19:20 | NUR ---
REPORT GIVEN TO NIGHTSHIFT NURSE, FOR CONTINUITY OF CARE.
--- NOTE | 2022-01-16 19:21 | NUR ---
RECEIVED BEDSIDE REPORT FROM DAY RN. PT IS ZOFIA APHASIC TRACKS NURSE. HX CEREBRAL PALSY. RESPIRATIONS ARE EQUAL AND UNLABORED ON ROOM AIR. SKIN IS WARM DRY AND INTACT. MOMIN CATH IN PLACE. PT IS BEDBOUND. IV ON RAC 20G AND LAC 18G SL. POC REVIEWED WITH PT. PT UNABLE TO COMPREHEND. SAFETY MEASURES ARE IN PLACE. WILL CONTINUE TO MONITOR.
[2022-01-16 20:00] VITALS: BP 127/73
[2022-01-16] MEDS: clonazePAM 0.5 MG TAB PO SCH (20:39)
--- NOTE | 2022-01-16 20:42 | NUR ---
VSS. BP 127/73 104BPM AUDREY LOPRESSOR GIVEN ALL AUDREY MEDICATIONS CRUSH AND MIXED WITH APPLE JUICE PT TOLERATED WELL. PT WAS REPOSITION FOR COMFORT. ALL SAFETY MEASURES ARE IN PLACE.
--- NOTE | 2022-01-16 22:07 | NUR ---
PT OBSERVED RESTING IN BED. CHEST RISE AND FALL NOTED. PT TRACKS NURSE. FLACC 0. SAFETY MEASURES ARE IN PLACE. WILL CONTINUE TO MONITOR.
--- NOTE | 2022-01-17 00:10 | NUR ---
ROUNDS MADE. PT APPEARS TO BE ASLEEP WITH EYES CLOSED. CHEST RISE AND FALL NOTED. WILL CONTINUE TO MONITOR.
--- NOTE | 2022-01-17 02:03 | NUR ---
ROUNDS MADE. PT APPEARS TO BE ASLEEP WITH EYES CLOSED. CHEST RISE AND FALL NOTED. WILL CONTINUE TO MONITOR.
[2022-01-17 04:00] VITALS: BP 132/66
--- NOTE | 2022-01-17 04:00 | NUR ---
VITAL SIGNS ARE WITHIN NORMAL LIMITS, WILL CONTINUE TO MONITOR.
[2022-01-17 06:04] LABS: BASOPHILS # (AUTO) 0.1 K/uL (0.00-0.22); BASOPHILS % (AUTO) 0.8 % (0.0-2.0); EOSINOPHILS # (AUTO) 0.6 K/uL (0-0.4); HEMATOCRIT 33.2 % (36-52); HEMOGLOBIN 11.1 g/dL (12.0-18.0); LYMPHOCYTES # (AUTO) 1.4 K/uL (2.0-11.5); LYMPHOCYTES % (AUTO) 15.1 % (20.5-51.1); MEAN CORPUSCULAR HEMOGLOBIN 33 pg (27-31); MEAN CORPUSCULAR HGB CONC 33 g/dL (33-37); MEAN CORPUSCULAR VOLUME 97.4 fL (80-94); MONOCYTES # (AUTO) 0.7 K/uL (0.8-1.0); MONOCYTES % (AUTO) 7.9 % (1.7-9.3); NEUTROPHILS # (AUTO) 6.3 K/uL (1.8-7.7); NEUTROPHILS % (AUTO) 69.2 % (42.2-75.2); PLATELET COUNT (AUTO) 287 K/uL (140-450); RED BLOOD CELL COUNT(AUTO) 3.41 MIL/uL (4.20-6.10); RED CELL DISTRIBUTION WIDTH 13.1 % (11.6-13.7)
[2022-01-17] MEDS: LOXAPINE 25 MG PO SCH ×2 (06:07→20:44)
[2022-01-17] MEDS: PIPERACILLIN/TAZOBACTAM 3.375 GM in DEXTROSE 5% 50 ML IV SCH (06:07)
[2022-01-17 06:27] LABS: ANION GAP 8.8 (8-16); CARBON DIOXIDE 28.6 mmol/L (21-32); CREATININE 1.2 mg/dL (0.6-1.3); POTASSIUM 3.4 mmol/L (3.5-5.1)
--- NOTE | 2022-01-17 07:30 | NUR ---
BEDSIDE REPORT GIVEN TO DAY RN. PT IN STABLE CONDITION.
--- NOTE | 2022-01-17 07:30 | NUR ---
RECEIVED REPORT FROM FOREIGN BANKNOTE TELLER TRADER NURSE: PT RECEIVED ASLEEP IN BED BUT EASILY AROUSED--ALERT WHEN AROUSED. PT BREATHING EFFORTLESSLY ON ROOM AIR. IV ACCESS SITES INTACT AT LEFT ANTECUBITAL AREA (SALINE LOCK) AND LEFT UPPER ARM, WITH NS INFUSING AT 5 ML/HR TO KEEP VEIN OPEN. MOMIN CATHETER IN PLACE, DRAINING YELLOW URINE. CALL LIGHT WITHIN REACH OF PT.
[2022-01-17 08:00] VITALS: BP 106/64
[2022-01-17] MEDS: FERROUS SULFATE 325 MG TABEC PO SCH ×2 (08:00→17:00)
[2022-01-17] MEDS ORDERED: VANCOMYCIN 1,000 MG in DEXTROSE 5% 250 ML IV SCH (08:00)
[2022-01-17] MEDS: LITHIUM CARBONATE 300 MG TAB PO SCH ×3 (09:00→17:00)
[2022-01-17] MEDS: ECOTRIN 81 MG TABEC PO SCH (09:00)
[2022-01-17] MEDS: PANTOPRAZOLE 40 MG TABEC PO SCH (09:00)
[2022-01-17] MEDS: METOPROLOL 25 MG TAB PO SCH ×2 (09:00→21:19)
[2022-01-17] MEDS: ENOXAPARIN 40 MG/0.4 ML SYR SUBQ SCH (09:56)
[2022-01-17] MEDS: lisinopriL 5 MG TAB PO SCH (10:00)
--- NOTE | 2022-01-17 10:00 | NUR ---
AM MEDS ADMIN ORDERED. PATIENT FED AND ATE 80% OF FULL LIQUID BREAKFAST.
[2022-01-17 12:00] VITALS: BP_SYST 106; BP_SYST 110; BP_DIAS 62; BP_DIAS 63
--- NOTE | 2022-01-17 12:00 | NUR ---
VANCOMYCIN IV DISCONTINUED AND ROCEPHIN IV STARTED ORDERED.
--- NOTE | 2022-01-17 14:00 | NUR ---
PATIENT ATE ONLY SMALL AMOUNT OF FULL LIQUID LUNCH THEN ASKED BY MARION IN ULTRASOUND TO KEEP PATIENT NPO EXCEPT FOR MEDS IN ORDER FOR ABDOMINAL ULTRASOUND. PM MEDS GIVEN EXCEPT FOR FERROUS SULFATE, TO MINIMIZE GI RISKS SINCE PATIENT NEEDED TO BE NPO. DR PARDO MADE AWARE.
[2022-01-17 16:00] VITALS: BP 106/63
[2022-01-17] MEDS: ATORVASTATIN 20 MG TAB PO SCH (17:00)
--- NOTE | 2022-01-17 17:00 | NUR ---
CONTACTED ULTRASOUND AND WAS INFORMED THAT PATIENT'S ULTRASOUND IS STILL SCHEDULED TO BE DONE THIS PM. PATIENT REMAINS NPO EXCEPT FOR MEDS.
--- NOTE | 2022-01-17 19:35 | NUR ---
PATIENT IN BED SHOWING NO SIGNS OF PAIN. CALL LIGHT PLACED WITHIN REACH. REPORTED TO KELLY MACHINE OPERATOR NURSE FOR CONTINUITY OF CARE.
--- NOTE | 2022-01-17 19:45 | NUR ---
REPORT GIVEN BY AM RN. RECEIVED PATIENT WITH EYES CLOSED, AROUSABLE BY VERBAL STIMULI. NO S/SX OF P[AIN NOR DISCOMFORT. NO ACUTE RESPIRATORY DISTRESS NOTED. SKIN WARM AND DRY TO TOUCH. ON BEDREST, MOMIN CATHETER IN PLACE DRAINING YELLOW URINE BY GRAVITY, BED IN THE LOWEST AND LOCKED POSITION FOR SAFETY, CALL LIGHT WITHIN REACH.
--- NOTE | 2022-01-17 20:44 | NUR ---
HEAD OF THE BED AT 35 DEGREES, DUE MEDICATIONS GIVEN ORDERED, PATIENT ABLE TO SWALLOW WITHOUT DIFFICULTY. NO COUGHING NOTED.
[2022-01-17] MEDS: clonazePAM 0.5 MG TAB PO SCH (21:17)
--- NOTE | 2022-01-17 21:19 | NUR ---
BP 94/49, INFORMED LEIGHA NN SWARTZ TO HOLD LOPRESSOR 25 MG FOR TONIGHT.
[2022-01-18] VITALS: BP 98/43
--- NOTE | 2022-01-18 | NUR ---
PATIENT HAD A BOWEL MOVEMENT X 1 MODERATE BROWN FORMED STOOL, CLEANED PATIENT, MADE COMFORTABLE IN BED. CALL LIGHT REMAINED WITHIN REACH.
[2022-01-18] MEDS: LOXAPINE 25 MG PO SCH (06:06)
--- NOTE | 2022-01-18 06:16 | NUR ---
AM CARE RENDERED. NO S/SX OF PAIN. NO ACUTE DISTRESS NOTED. ALL NEEDS ATTENDED TO. SAFETY PRECAUTIONS MAINTAINED DURING THE SHIFT, CALL LIGHT REMAINED WITHIN REACH. WILL ENDORSE PLAN OF CARE TO AM RN.
[2022-01-18 06:31] LABS: ANION GAP 8.3 (8-16); CARBON DIOXIDE 29.3 mmol/L (21-32); CREATININE 1.2 mg/dL (0.6-1.3); POTASSIUM 3.6 mmol/L (3.5-5.1)
[2022-01-18 06:45] LABS: BASOPHILS # (AUTO) 0.1 K/uL (0.00-0.22); BASOPHILS % (AUTO) 0.6 % (0.0-2.0); EOSINOPHILS # (AUTO) 0.9 K/uL (0-0.4); EOSINOPHILS % (AUTO) 9.8 % (0.0-4.0); HEMATOCRIT 33.6 % (36-52); LYMPHOCYTES # (AUTO) 1.5 K/uL (2.0-11.5); LYMPHOCYTES % (AUTO) 16.9 % (20.5-51.1); MEAN CORPUSCULAR HEMOGLOBIN 32 pg (27-31); MEAN CORPUSCULAR HGB CONC 33 g/dL (33-37); MONOCYTES # (AUTO) 0.7 K/uL (0.8-1.0); NEUTROPHILS # (AUTO) 5.9 K/uL (1.8-7.7); NEUTROPHILS % (AUTO) 64.7 % (42.2-75.2); PLATELET COUNT (AUTO) 270 K/uL (140-450); RED BLOOD CELL COUNT(AUTO) 3.43 MIL/uL (4.20-6.10); RED CELL DISTRIBUTION WIDTH 13.3 % (11.6-13.7); WHITE BLOOD COUNT (AUTO) 9.1 K/uL (4.8-10.8)
--- NOTE | 2022-01-18 07:20 | NUR ---
RECEIVED REPORT FROM ENVELOPE PRESS OPERATOR NURSE FOR CONTINUITY OF CARE. PT ASLEEP IN BED. BREATHING SYMMETRICAL ON ROOM AIR. FLACC O. MOMIN CATHETER INTACT AND PATENT DRAINING DARK YELLOW URINE. LAC 20G ON SALINE LOCK. CALL LIGHT WITHIN REACH. ALL SAFETY MEASURES IN PLACE.
[2022-01-18 08:00] VITALS: BP 108/59
[2022-01-18] MEDS: METOPROLOL 25 MG TAB PO SCH (09:00)
[2022-01-18] MEDS: lisinopriL 5 MG TAB PO SCH (09:00)
[2022-01-18] MEDS: FERROUS SULFATE 325 MG TABEC PO SCH (09:28)
[2022-01-18] MEDS: LITHIUM CARBONATE 300 MG TAB PO SCH ×2 (09:29→13:46)
[2022-01-18] MEDS: ECOTRIN 81 MG TABEC PO SCH (09:29)
[2022-01-18] MEDS: PANTOPRAZOLE 40 MG TABEC PO SCH (09:29)
[2022-01-18] MEDS: ENOXAPARIN 40 MG/0.4 ML SYR SUBQ SCH (09:46)
--- NOTE | 2022-01-18 09:46 | NUR ---
SCHEDULED AM MEDICATIONS GIVEN ORDERED.
[2022-01-18] MEDS ORDERED: AMOX-999 PO (11:03)
[2022-01-18 13:04] VITALS: BP 108/59
--- NOTE | 2022-01-18 13:39 | NUR ---
NOTED PT'S IV LINE PULLED OUT.
--- NOTE | 2022-01-18 13:41 | NUR ---
PT FOR DISCHARGE, CALLED [facility], NO ANSWER. LEFT VOICE MESSAGE, AWAITING TO CALL BACK.
--- NOTE | 2022-01-18 14:26 | NUR ---
TRIED CALLING AGAIN TYRONE AND MADELAINE, STILL UNABLE TO REACH. VOICE MESSAGE LEFT. CALLED MERGED WITH [facility] [phone] SPOKE WITH JACOBO AND GAVE ALEJANDRA RN NUMBER, CALLED ALEJANDRA UNABLE TO LEAVE VOICE MESSAGE. JACOBO WILL ALSO TRY TO CALL TYRONE/MADELAINE
--- NOTE | 2022-01-18 15:49 | NUR ---
CLARIFIED WITH DR CASTRO REGARDING PT'S MOMIN CATHETER, PER MD TO REMOVE. REMOVED MOMIN CATHETER, PT TOLERATED WELL.
--- NOTE | 2022-01-18 15:49 | NUR ---
DISCHARGED PT TO [facility] PICKED UP BY [facility] VIA GURNEY ACCOMPANIED BY 2 STAFF, WITH PAPERWORKS AND BELONGINGS AND MEDICATION FROM HOME. IN STABLE CONDITION.
== END 2022-01-18 15:55 | DRG 720 ==
LOC: MED 20:13 → MTU 01-12 00:07 → MMU 01-12 04:40
PROVIDERS: ADMIT Student in an Organized Health Care Education/Training Program; ATTEND Student in an Organized Health Care Education/Training Program
DX: A40.8 Other streptococcal sepsis (principal); I21.4 Non-ST elevation (NSTEMI) myocardial infarction; E44.0 Moderate protein-calorie malnutrition; I51.7 Cardiomegaly; D53.9 Nutritional anemia, unspecified; R62.50 Unspecified lack of expected normal physiological development in childhood; N39.0 Urinary tract infection, site not specified; I25.10 Atherosclerotic heart disease of native coronary artery without angina pectoris; Z20.822 Contact with and (suspected) exposure to COVID-19; G40.909 Epilepsy, unspecified, not intractable, without status epilepticus; F79 Unspecified intellectual disabilities; Z95.1 Presence of aortocoronary bypass graft; Z68.29 Body mass index [BMI] 29.0-29.9, adult; Z79.899 Other long term (current) drug therapy
CPT/HCPCS: 36415; 51702; 71045; 76700; 80048; 80053; 80178; 80202; 80305; 81001; 82150; 82607; 82728; 82746; 83036; 83540; 83605; 83690; 83735; 83880; 84100; 84443; 84484; 85025; 85045; 85610; 85730; 87040; 87081; 87086; 87635-QW; 92526; 93005; 96361; 96365; 99291; J0696; J1650; J2543; J3370; J7060; Q0092

== ENCOUNTER 2022-03-19 10:46 | Inpatient (IN) | payer MEDICAID ==
[~2022-03-19] VITALS: Ht 167.6 cm; Wt 59.9 kg
[~2022-03-19 10:46] MED LIST changes: +AMOX-999 PO; -CETI10TA81 PO; -LOXA50CA PO; -NAPH15SO OP
[2022-03-19 10:47] VITALS: BP 103/63
--- NOTE | 2022-03-19 10:47 | NUR ---
BIBA BLS TAKEN TO BED 2
--- NOTE | 2022-03-19 10:58 | NUR ---
PT BIB [facility] FROM BOARD AND CARE C/C FEVER. PT HX OF MR AT BASELINE. PT FEELS WARM TO TOUCH. STACH ON MONITOR. PENDING ER MD MARQUEZ.
[2022-03-19 12:43] LABS: BASOPHILS % (AUTO) 0.2 % (0.0-2.0); EOSINOPHILS % (AUTO) 0.4 % (0.0-4.0); HEMATOCRIT 32.3 % (36-52); HEMOGLOBIN 10.6 g/dL (12.0-18.0); LYMPHOCYTES # (AUTO) 1.3 K/uL (2.0-11.5); LYMPHOCYTES % (AUTO) 10.2 % (20.5-51.1); MEAN CORPUSCULAR HEMOGLOBIN 31 pg (27-31); MEAN CORPUSCULAR HGB CONC 33 g/dL (33-37); MEAN CORPUSCULAR VOLUME 93.6 fL (80-94); MONOCYTES % (AUTO) 7.6 % (1.7-9.3); NEUTROPHILS # (AUTO) 10.2 K/uL (1.8-7.7); NEUTROPHILS % (AUTO) 81.6 % (42.2-75.2); PLATELET COUNT (AUTO) 252 K/uL (140-450); RED BLOOD CELL COUNT(AUTO) 3.45 MIL/uL (4.20-6.10); RED CELL DISTRIBUTION WIDTH 14.5 % (11.6-13.7); WHITE BLOOD COUNT (AUTO) 12.5 K/uL (4.8-10.8)
[2022-03-19 12:45] LABS: ALBUMIN 2.5 g/dL (3.4-5.0); ANION GAP 10.6 (8-16); CARBON DIOXIDE 27.9 mmol/L (21-32); CREATININE 1.2 mg/dL (0.6-1.3); POTASSIUM 4.5 mmol/L (3.5-5.1); TOTAL BILIRUBIN 0.4 mg/dL (0.0-1.0)
[2022-03-19] MEDS ORDERED: NACL 0.9% 1,000 ML IV ONE (12:45)
--- NOTE | 2022-03-19 13:15 | NUR ---
urine collected and walked to lab.
[2022-03-19] MEDS ORDERED: ACETAMINOPHEN 650 MG SUPP RC SCH (13:35)
[2022-03-19 13:49] LABS: PROTHROMBIN TIME 10.6 secs (10.8-13.4)
--- NOTE | 2022-03-19 14:00 | NUR ---
PT RESTING IN JONATHON LOPEZ ON MONITOR. NO CHANGES NOTED. SAFETY MAINTAINED
[2022-03-19 14:09] LABS: APPEARANCE,URINE CLEAR (CLEAR); BILIRUBIN,URINE NEGATIVE (NEGATIVE); BLOOD, URINE NEGATIVE (NEGATIVE); COLOR,URINE YELLOW (YELLOW); LEUKOCYTE ESTERASE ,URINE NEGATIVE (NEGATIVE); NITRITE, URINE NEGATIVE (NEGATIVE); UGLUCOSE NEGATIVE (NEGATIVE)
--- NOTE | 2022-03-19 16:00 | NUR ---
SKIN HOT TO TOUCH, R 102.1 MEDICATED PER ORDER. COOLING MEASURES INITIATED.
--- NOTE | 2022-03-19 16:10 | NUR ---
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 PATIENT IS FULL CODE, NON-VERBAL, NKA, AMBULATORY PRE-ADMISSION; ON ROOM AIR, G-TUBE PRESENT, INCONTINENT USE DIAPER. PIV HERVE SALINE LOCK. NO OTHER SKIN ISSUE. WILL CONTINUE TO MONITOR
[2022-03-19] MEDS ORDERED: guaiFENesin DM 200/20 MG-10 ML 10 ML UDC PO PRN (16:55)
[2022-03-19] MEDS ORDERED: HYDROcodone/APAP 7.5/325 MG 1 TAB PO PRN (16:55)
[2022-03-19] MEDS ORDERED: POTASSIUM CHLORIDE 10 MEQ TABER PO PRN (16:55)
[2022-03-19] MEDS ORDERED: DOCUSATE SODIUM 100 MG GELCAP PO PRN (16:55)
[2022-03-19] MEDS ORDERED: ONDANSETRON 4 MG/2 ML VIAL IM/IVP PRN (16:55)
[2022-03-19] MEDS ORDERED: NACL 0.9% 1,000 ML IV SCH (16:55)
[2022-03-19] MEDS ORDERED: ZOLPIDEM 5 MG TAB PO PRN (16:55)
[2022-03-19] MEDS ORDERED: NITROGLYCERIN 0.4 MG TAB SL PRN (16:55)
[2022-03-19 17:28] LABS: CHOL/HDL RATIO 3.8 (1-4.5); FREE T4 (FREE THYROXINE) 1.12 ng/dL (0.76-1.46); MAGNESIUM 2.6 mg/dL (1.8-2.4); PHOSPHORUS 2.9 mg/dL (2.5-4.9); THYROID STIMULATING HORMONE 1.94 uIU/mL (0.34-3.74)
[2022-03-19 18:00] VITALS: BP 101/63
[2022-03-19] MEDS: DEXT 5% /NACL 0.9% 1,000 ML IV SCH (19:03)
--- NOTE | 2022-03-19 19:34 | NUR ---
ENDORSE PATIENT TO PM SHIFT NURSE WHILE PATIENT REST IN BED, PIV ND5NS INFUSING AT 100ML/HR VIA HERVE 20G. NPO WAITING FOR ST EVALUATION
--- NOTE | 2022-03-19 19:35 | NUR ---
RECEIVED PT FROM MORNING SHIFT NURSE. PT IS LYING ON THE BED AND NON-VERBAL. PT HAS TACHYCARDIA RHYTHM, ON ROOM AIR AND ON CARDIAC DIET AND HAS G-TUBE. PT IS INCONTINENT WITH DIAPER AND HAS IV ON RIGHT UPPER ARM GAUGE 20 RUNNING WITH D5NS AT 100ML/HR. PT SKIN IS INTACT. ALL SAFETY MEASURES IMPLEMENTED. BED WHEELS ON LOCKED, BED IN LOW POSITION AND CALL LIGHT WITHIN REACH.
--- NOTE | 2022-03-19 20:55 | NUR ---
NOTIFIED DR. CASTRO IF THE PT CAN RECEIVED MEDICATION THRU G-TUBE BECAUSE THE PT CANT SWALLOW. WILL WAIT FOR THE REPLY OF DOCTOR TO GIVE THE MEDICATION.
--- NOTE | 2022-03-19 21:17 | NUR ---
DR. CASTRO REPLIED AND ALLOW TO GIVE MEDICATION THRU G-TUBE. HE ALSO ORDER GLUCERNA AT 40CC. ORDER WAS MADE AND CARRIED OUT.
[2022-03-19] MEDS: ATORVASTATIN 20 MG TAB PO SCH (21:28)
[2022-03-19] MEDS: METOPROLOL 25 MG TAB PO SCH (21:28)
[2022-03-19] MEDS: clonazePAM 0.5 MG TAB PO SCH (21:28)
--- NOTE | 2022-03-19 21:30 | NUR ---
CALLED [facility] #[phone] AND SPOKE TO BELL REGARDING PT'S DIET STATUS AND G-TUBE SITUATION, SHE STATED PT HASN'T EATEN IN A WHILE AND THEY ARE GIVING HIM VIA G-TUBE VIA GRAVITY 5 CANS OF 8 OZ ISOSOURCE DAILY, WILL MESSAGE DR CASTRO.
--- NOTE | 2022-03-19 21:30 | NUR ---
ALL SCHEDULED AND PRESCRIBED MEDICATION WAS GIVEN TO PT PER MD ORDER. PT TOLERATED IT WELL. ALL SAFETY MEASURES IMPLEMENTED. BED WHEELS ON LOCKED, BED IN LOW POSITION AND CALL LIGHT WITHIN REACH.
[2022-03-19] MEDS: ACETAMINOPHEN 325 MG TAB PO PRN (22:27)
--- NOTE | 2022-03-19 22:27 | NUR ---
PT WAS GIVEN PRN TYLENOL DUE TO TEMP OF 102.1 PT TOLERATED IT WELL. ALL SAFETY MEASURES IMPLEMENTED. BED WHEELS ON LOCKED, BED IN LOW POSITION AND CALL LIGHT WITHIN REACH.
--- NOTE | 2022-03-19 23:27 | NUR ---
PT CURRENT TEMP IS 98.1 ALL SAFETY MEASURES IMPLEMENTED. BED WHEELS ON LOCKED, BED IN LOW POSITION AND CALL LIGHT WITHIN REACH.
[2022-03-20] VITALS: BP 97/47
--- NOTE | 2022-03-20 00:10 | NUR ---
NOTIFIED DR. CASTRO REGARDING PT BP 97/47. WILL WAIT FOR DR. CASTRO'S REPLY.
--- NOTE | 2022-03-20 02:00 | NUR ---
PT IS SLEEPING. CHEST RISE AND FALL SYMMETRICALLY NOTED. RESPIRATION IS EVEN AND UNLABORED. NO S/S OF RESPIRATORY DISTRESS NOTED. ALL SAFETY MEASURES IMPLEMENTED. BED WHEELS ON LOCKED, BED IN LOW POSITION AND CALL LIGHT WITHIN REACH.
[2022-03-20 04:00] VITALS: BP 99/52
[2022-03-20] MEDS: DEXT 5% /NACL 0.9% 1,000 ML IV SCH (05:12)
--- NOTE | 2022-03-20 05:40 | NUR ---
STARTED G-TUBE FEEDING OF GLUCERNA 1.2 RATE OF 40 WITH WATER FLUSH OF 100 Q 6HRS. PT TOLERATED IT WELL. ALL SAFETY MEASURES IMPLEMENTED. BED WHEELS ON LOCKED, BED IN LOW POSITION AND CALL LIGHT WITHIN REACH.
--- NOTE | 2022-03-20 06:57 | NUR ---
DR. CASTRO REPLIED REGARDING THE LOW BP OF THE PT, JUST TO MONITOR THE BP OF THE PT.
[2022-03-20 07:07] LABS: T4 (THYROXINE) 7.4 ug/dL (4.5-12.0)
[2022-03-20 07:08] LABS: BASOPHILS % (AUTO) 0.4 % (0.0-2.0); EOSINOPHILS % (AUTO) 0.1 % (0.0-4.0); HEMATOCRIT 27.7 % (36-52); HEMOGLOBIN 9.2 g/dL (12.0-18.0); LYMPHOCYTES # (AUTO) 1.1 K/uL (2.0-11.5); LYMPHOCYTES % (AUTO) 10.8 % (20.5-51.1); MEAN CORPUSCULAR HEMOGLOBIN 31 pg (27-31); MEAN CORPUSCULAR HGB CONC 33 g/dL (33-37); MEAN CORPUSCULAR VOLUME 93.7 fL (80-94); MONOCYTES # (AUTO) 0.8 K/uL (0.8-1.0); MONOCYTES % (AUTO) 8.3 % (1.7-9.3); NEUTROPHILS # (AUTO) 7.9 K/uL (1.8-7.7); NEUTROPHILS % (AUTO) 80.4 % (42.2-75.2); PLATELET COUNT (AUTO) 223 K/uL (140-450); RED BLOOD CELL COUNT(AUTO) 2.96 MIL/uL (4.20-6.10); RED CELL DISTRIBUTION WIDTH 14.7 % (11.6-13.7); WHITE BLOOD COUNT (AUTO) 9.8 K/uL (4.8-10.8)
[2022-03-20 07:18] LABS: ANION GAP 10.8 (8-16); CARBON DIOXIDE 25.1 mmol/L (21-32); CREATININE 1.1 mg/dL (0.6-1.3); POTASSIUM 3.9 mmol/L (3.5-5.1)
--- NOTE | 2022-03-20 07:23 | NUR ---
PT IS STABLE. ENDORSED PT TO MORNING SHIFT NURSE FOR CONTINUITY OF CARE.
--- NOTE | 2022-03-20 07:30 | NUR ---
RECEIVED BEDSIDE REPORT FROM VEGETABLE CANNER NURSE FOR CONTINUOUS FO CARE, PT RESTING, NO DISTRESS NOTED, APHASIC, PT ON ROOM AIR, NO SOB NOTED, IV TO LEFT UPPER ARM, 20G PATENT INTACT, INFUSING WELL. GT IN PLACE WITH FEEDING , TOLERATING WELL. INITIAL ASSESSMENT DONE, ALL SAFETY PRECAUTION MET, CALL LIGHT WITHIN REACH, WILL CONTINUE TO MONITOR.
[2022-03-20 08:00] VITALS: BP 108/47
[2022-03-20] MEDS: ECOTRIN 81 MG TABEC PO SCH (08:54)
--- NOTE | 2022-03-20 08:54 | NUR ---
DUE MEDICATIONS ADMINISTERED, BP MEDICATIONS HELD DUE TO PT BP LOW. WILL NOTIFY
[2022-03-20] MEDS ORDERED: PROPRANOLOL HCL 5 MG PO SCH (09:00)
[2022-03-20] MEDS ORDERED: PANTOPRAZOLE 40 MG TABEC PO SCH (09:00)
[2022-03-20] MEDS ORDERED: lisinopriL 5 MG TAB PO SCH (09:00)
[2022-03-20] MEDS: METOPROLOL 25 MG TAB PO SCH (09:00)
--- NOTE | 2022-03-20 09:19 | NUR ---
PATIENT HAS BEEN SCREENED AND CATEGORIZED HIGH NUTRITION RISK. PATIENT WILL BE SEEN WITHIN 1-2 DAYS OF ADMISSION. RECEIVED FNS CONSULT FOR TUBE FEEDING. 03/20/22-03/21/22 REVIEWED BY KALINA TORIBIO RD
[2022-03-20] MEDS: PANTOPRAZOLE 40 MG INJ VIAL IVP SCH (10:00)
--- NOTE | 2022-03-20 10:40 | NUR ---
NOTIFY DR CASTRO REGARDING PT HAD 2 EPISODES OF TENSING UP AND HR WENT UP TO 200S AND LASTED ABOUT A MINUTE EACH DURING ECHO, REPORTED BY TECHNOLOGY PROGRAM MANAGER. AWAITING FOR ORDERS
--- NOTE | 2022-03-20 10:54 | NUR ---
DUE MEDICATIONS ADMINISTERED PT TOLERATED WELL, WILL CONTINUE TO MONITOR.
[2022-03-20] MEDS: levETIRAcetam 100 MG/ML ORASYR GT SCH ×2 (10:57→21:59)
[2022-03-20 12:00] VITALS: BP 126/69
--- NOTE | 2022-03-20 13:29 | NUR ---
DC PAPERWORKS GIVEN, PT STATED UNDERSTANDING, NO DISTRESS NOTED, ALL QUESTIONS ANSWERED. IV TAKEN OUT, CATH INTACT. Addendum: 03/20/22 at 1407 by Mai Forrseter RN [facility] PT
--- NOTE | 2022-03-20 14:11 | NUR ---
03/20/22 RD INITIAL ASSESSMENT COMPLETED PLEASE REFER TO NUTRITION ASSESSMENT UNDER CARE ACTIVITY FOR ESTIMATED NUTRITIONAL NEEDS. 1. RECOMMEND GLUCERNA 1.2 @ 50 ML/HR TOLERATED -FWF: 150ML Q4H OR PER MD -WILL PROVIDE 87% ESTIMATED KCAL AND 100% ESTIMATED PROTEIN NEEDS; ADEQUATE 2. IF PT PASSES SWALLOW EVAL, RECOMMEND ADVANCING TO REGULAR DIET WITH TEXTURE MODIFICATION PER POLISHER HAND RECOMMENDATIONS -RECOMMEND ORAL SUPPLEMENTS FOR NUTRITION SUPPORT 3. MONITOR NUTRITION-RELATED LAB VALUES 4. RD TO FOLLOW-UP 3-5 DAYS, MODERATE RISK KALINA TORIBIO RD
--- NOTE | 2022-03-20 14:26 | NUR ---
DC PLANN[age] YRS OLD MALE PATIENT WAS ADMITTED FROM [facility] WITH A DX OF SEPSIS AND ELEVATED TROPONIN. PATIENT HAS A HX OF SEIZURE, INTELLECTUAL DISABILITY, NON-VERBAL AND LEGALLY BLIND. CXR SHOWED NO ACUTE CARDIOPULMONARY DISEASE. CT CHEST DIFFUSE RETENTION COMPATIBLE WITH CONSTIPATION. RAPID COVID TEST NEGATIVE. BLOOD AND URINE CULTURE PENDING. TROPONIN 495, 428. ADMINISTERED IVF, IV ABX ROCEPHIN AND CONTINUED HOME MEDS. CONSULTED WITH CARDIO DR MCGOVERN AND ID DR MTZ. DC PLAN TO RETURN TO [facility] WHEN STABLE. CM TO FOLLOW Addendum: 03/22/22 at 1242 by Ruthann Jones RN DC PLANNING: CALLED [facility] INTERN OF [facility] DISCUSSED THE DC PLAN TO GO TO SNF FOR IV ABX, PER DONNELL IT WILL BE OK TO SEND TO [facility] OR [facility]. FAXED THE REQUEST TO BOTH. AWAITING FOR BLOOD CULTURE. CM TO FOLLOW Addendum: 03/27/22 at 1612 by Ruthann Jones RN DC PLANNING: PATIENT INTUBATED SEDATED , CONTINUED LEVO AND VASOPRESSIN, CONTINUE FLAGYL AND CEFEPIME IV ABX EEG DONE READ BY DR WRIGHT NEUROLOGIST SEVER ENCEPHALOPATHY. ID, PULMO AND NEURO FOLLOWING. CALLED [facility] [phone] SPOKE WITH ENRICO MURPHY DISCUSSED THE CODE STATUS. PER ENRICO PATIENT HAS NO NEXT OF KIN AND HE IS NOT CONSERVED AND ETHICS COMMITTEE CAN MAKE A DECISION. WILL NOTIFY DR HERNANDEZ AND ATTENDING. CM TO FOLLOW
--- NOTE | 2022-03-20 15:24 | NUR ---
ATTEMPTED TO REACH ABILITY PATHWAY ADMIN, MICHELLE SALINAS@ [phone], HOWEVER, UNSUCCESSFUL. VELMA TO FOLLOW. Addendum: 03/21/22 at 1029 by Maritza Tellez SECOND ATTEMPT TO REACH ABILITY PATHWAY ADMIN MICHELLE @ [phone], HOWEVER, UNSUCCESSFUL. VELMA LEFT HIPPA COMPLIANT MESSAGE REQUESTING A RETURN PHONE CALL. Addendum: 03/22/22 at 1056 by Maritza FLORES THIRD ATTEMPT; VELMA ATTEMPTED TO CONTACT MICHELLE (ABILITY PATHWAY ADMIN) AT [phone], HOWEVER, UNSUCCESSFUL. VELMA LEFT HIPPA COMPLIANT MESSAGE REQUESTING A RETURN PHONE CALL. VELMA OUTREACHED TO MADELAINE AGUILERA [phone], ABILITY PATHWAYS ADMIN, UNABLE TO LEAVE MESSAGE VM WAS FULL. VELMA SPOKE WITH FACILITY NURSE, RADHA WHO PROVIDED MINIMAL INFORMATION. NURSE REPORTS THAT PATIENT HAS BEEN RESIDENT OF [employer] SINCE 2012. RADHA REPORTS PATIENT REQUIRES ASSISTANCE WITH ALL ADL'S AND HAS UNSTEADY GAIT AND IMPAIRED MOBILITY AND IS STAND BY ASSIST WITH ALL ACTIVITIES. PATIENT IS REPORTED TO BE LEGALLY BLIND & IS NON-VERBAL. PATIENT HAS LIMITED SUPPORT SYSTEM AND TO NURSES KNOWLEDGE, THERE IS NO FAMILY INVOLVEMENT. PATIENT IS REPORTED TO UNDER GUARDIANSHIP OF YONG MURPHY, HOWEVER NURSE UNABLE TO PROVIDE CONTACT INFORMATION. NO FURTHER INFORMATION WAS PROVIDED AND WAS PROVIDED TO THE BEST OF THE NURSES ABILITY Addendum: 03/22/22 at 1156 by Maritza Tellez FIELDED CALL FROM TYRONE [employer] [facility] TO GATHER COLLATERAL INFORMATION. TYRONE REPORTS PATIENT HAS BEEN RESIDENT OF [place] SINCE 2012. PT IS NONVERBAL AND REPORTED TO BE LEGALLY BLIND. PATIENT IS AMBULATORY WITH UNSTEADY GAIT AND REQUIRES STANDY BY ASSIST AND ASSISTANCE WITH ADL'S. PATIENT IS REPORTED TO HAVE LIMITED FAMILY SUPPORTS.PATIENT IS A NON CONSERVED ADULT HOWEVER, IS REGIONAL CENTER CONNECTED. REGIONAL CENTER WORKER IS YONG MURPHY [phone].
[2022-03-20] MEDS: ACETAMINOPHEN 325 MG TAB PO PRN (15:42)
--- NOTE | 2022-03-20 15:48 | NUR ---
GLUE MAKER BONE REPORTED 100.6 TEMPERATURE. COOLING MEASURES STARTED. ADMINISTERED TYLENOL ORDERED. WILL CONTINUE TO MONITOR. WILL RE-ASSESS TEMPERATURE IN 1 HOUR.
[2022-03-20 16:00] VITALS: BP 113/46
--- NOTE | 2022-03-20 17:00 | NUR ---
RECHECKED PT TEMPERATURE 97.8, PT RESTING, NO DISTRESS NOTED, WILL CONTINUE TO MONITOR.
[2022-03-20] MEDS ORDERED: LITHIUM CARBONATE 300 MG TAB PO SCH (17:18)
--- NOTE | 2022-03-20 19:13 | NUR ---
ENDORSED PT TO SPRAY MACHINE OPERATOR NURSE FOR CONTINUOUS OF CARE.
[2022-03-20] MEDS ORDERED: VANCOMYCIN PER PHARMACY MC PRN (19:15)
[2022-03-20 20:00] VITALS: BP 105/50
[2022-03-20] MEDS ORDERED: VANCOMYCIN 1GM/DEXT 5% PREMIX 200 ML IV ONE (20:00)
[2022-03-20] MEDS: clonazePAM 0.5 MG TAB PO SCH (22:09)
[2022-03-20] MEDS: ATORVASTATIN 20 MG TAB PO SCH (22:10)
[2022-03-21 04:00] VITALS: BP 142/57
[2022-03-21] MEDS ORDERED: VANCOMYCIN 1GM/DEXT 5% PREMIX 200 ML IV SCH ×2 (05:15→06:00)
--- NOTE | 2022-03-21 05:20 | NUR ---
REACHED OUT TO PHARMACY TO CHANGE SCHEDULE OF VANCOCIN SINCE IT WAS NOT GIVEN AT 1999. PHARMACY WILL CHANGE SCHEDULE TO 0530. WILL GIVE ONCE SCHEDULE IS CHANGED.
[2022-03-21] MEDS ORDERED: VANCOMYCIN 1,000 MG VIAL ONE (06:03)
--- NOTE | 2022-03-21 06:10 | NUR ---
VANCOCIN SCHEDULE WAS NOT CHANGED BY PHARMACY HAD TO CALL PHARMACY BACK. PHARMACY AND I WERE ON THE PHONE FOR AROUND TEN MINUTES TRYING TO FIX VANCOCIN ISSUE. ISSUE WAS FIXED. WILL MIX AND ADMINISTER VANCOCIN.
--- NOTE | 2022-03-21 06:33 | NUR ---
VANCOCIN WAS MIXED AND ADMINISTERED SUCCESSFULLY. WILL INFORM NURSE ABURTO OF ADMINISTRATION.
[2022-03-21 07:07] LABS: BASOPHILS % (AUTO) 0.4 % (0.0-2.0); EOSINOPHILS # (AUTO) 0.1 K/uL (0-0.4); EOSINOPHILS % (AUTO) 0.6 % (0.0-4.0); HEMATOCRIT 31.2 % (36-52); HEMOGLOBIN 10.3 g/dL (12.0-18.0); LYMPHOCYTES # (AUTO) 1.3 K/uL (2.0-11.5); LYMPHOCYTES % (AUTO) 13.2 % (20.5-51.1); MEAN CORPUSCULAR HEMOGLOBIN 31 pg (27-31); MEAN CORPUSCULAR HGB CONC 33 g/dL (33-37); MEAN CORPUSCULAR VOLUME 94.1 fL (80-94); MONOCYTES # (AUTO) 0.8 K/uL (0.8-1.0); MONOCYTES % (AUTO) 7.7 % (1.7-9.3); NEUTROPHILS # (AUTO) 7.7 K/uL (1.8-7.7); NEUTROPHILS % (AUTO) 78.1 % (42.2-75.2); PLATELET COUNT (AUTO) 221 K/uL (140-450); RED BLOOD CELL COUNT(AUTO) 3.31 MIL/uL (4.20-6.10); RED CELL DISTRIBUTION WIDTH 14.9 % (11.6-13.7); WHITE BLOOD COUNT (AUTO) 9.8 K/uL (4.8-10.8)
[2022-03-21 07:19] LABS: ANION GAP 11.3 (8-16); CARBON DIOXIDE 26.8 mmol/L (21-32); POTASSIUM 4.1 mmol/L (3.5-5.1)
--- NOTE | 2022-03-21 07:25 | NUR ---
RECEIVED REPORT FROM NIGHTSHIFT NURSE CRISELDA FOR CONTINUITY OF CARE. PT IS CURRENTLY SLEEPING, NONVERBAL BUT TRACKS WITH EYES. BREATHING IS EVEN, REGULAR AND UNLABORED ON ROOM AIR. PT SKIN INTACT. G-TUBE FEEDING PUMP CURRENTLY RUNNING GLUCERNA AT 50ML/HR. PT IS INCONTINENT OF THE BOWEL AND BLADDER. NO SIGNS OF PAIN OR DISCOMFORT AT THIS TIME.
[2022-03-21 08:00] VITALS: BP 108/37
[2022-03-21] MEDS: levETIRAcetam 100 MG/ML ORASYR GT SCH ×2 (08:43→21:38)
[2022-03-21] MEDS: ECOTRIN 81 MG TABEC PO SCH (08:43)
[2022-03-21] MEDS: LITHIUM CARBONATE 300 MG TAB PO SCH ×3 (08:43→17:10)
--- NOTE | 2022-03-21 08:43 | NUR ---
ASSESSED PT, 15ML OF RESIDUAL NOTED. MEDICATED PT VIA G-TUBE. PT TOLERATED WELL. RESUMED FEEDING. NO SIGNS OF PAIN OR DISTRESS NOTED AT THIS TIME.
[2022-03-21] MEDS: PANTOPRAZOLE 40 MG INJ VIAL IVP SCH (08:44)
--- NOTE | 2022-03-21 10:50 | NUR ---
PT VISUALLY ASSESSED. CURRENTLY SLEEPING, NO SIGNS OR PAIN OR DISTRESS NOTED AT THIS TIME.
--- NOTE | 2022-03-21 12:30 | NUR ---
PT VISUALLY ASSESSED. CURRENTLY SLEEPING, NO SIGNS OR PAIN OR DISTRESS NOTED AT THIS TIME.
--- NOTE | 2022-03-21 13:04 | NUR ---
COLLECTIONS DIRECTOR MADELAINE FROM [facility] FIRST CALLED FOR UPDATE ON PT.
--- NOTE | 2022-03-21 15:35 | NUR ---
PT VISUALLY ASSESSED. NO SIGNS OR PAIN OR DISTRESS NOTED AT THIS TIME.
[2022-03-21 16:00] VITALS: BP 102/57
--- NOTE | 2022-03-21 17:11 | NUR ---
PT VISUALLY ASSESSED. CURRENTLY SLEEPING, NO SIGNS OF PAIN OR DISTRESS NOTED AT THIS TIME.
[2022-03-21] MEDS: VANCOMYCIN 750 MG in DEXTROSE 5% 250 ML IV SCH (18:17)
--- NOTE | 2022-03-21 19:11 | NUR ---
ENDORSED PT TO [facility] NURSE LOVE FOR CONTINUITY OF CARE. PT IN STABLE CONDITION.
--- NOTE | 2022-03-21 19:12 | NUR ---
RECEIVED PT FROM MORNING SHIFT NURSE. PT IS NON-VERBAL, AND BEDBOUND. PT IS ON ROOM AIR AND ON G-TUBE WITH GLUCERNA 1.2 RATE OF 50 WITH WATER FLUSH OF 150 EVERY 6 HRS. PT HAS IV ON LEFT UPPER ARM GAUGE 20 RUNNING WITH D5 1/2 NS AT KVO. PT SKIN IS INTACT. ALL SAFETY MEASURES IMPLEMENTED. BED WHEELS ON LOCKED, BED IN LOW POSITION AND CALL LIGHT WITHIN REACH.
[2022-03-21] MEDS: clonazePAM 0.5 MG TAB PO SCH (21:39)
[2022-03-21] MEDS: ATORVASTATIN 20 MG TAB PO SCH (21:42)
--- NOTE | 2022-03-21 21:44 | NUR ---
ALL PRESCRIBED AND SCHEDULED MEDICATION WAS GIVEN TO PT PER MD ORDER. PT TOLERATED IT WELL. ALL SAFETY MEASURES IMPLEMENTED. BED WHEELS ON LOCKED, BED IN LOW POSITION AND CALL LIGHT WITHIN REACH.
[2022-03-21] MEDS: ACETAMINOPHEN 325 MG TAB PO PRN (22:30)
--- NOTE | 2022-03-21 22:30 | NUR ---
TYLENOL WAS GIVEN TO PT DUE TO TEMP OF 99.9. COOLING MEASURE WAS ALSO IMPLEMENTED. ALL SAFETY MEASURES IMPLEMENTED. BED WHEELS ON LOCKED, BED IN LOW POSITION AND CALL LIGHT WITHIN REACH.
--- NOTE | 2022-03-21 23:30 | NUR ---
PT TEMP IS 98.6 ALL SAFETY MEASURES IMPLEMENTED. BED WHEELS ON LOCKED, BED IN LOW POSITION AND CALL LIGHT WITHIN REACH.
[2022-03-22] VITALS: BP 125/57
--- NOTE | 2022-03-22 04:00 | NUR ---
CHECKED THE PT, STILL SLEEPING. CHEST RISE AND FALL SYMMETRICALLY NOTED. RESPIRATION IS EVEN AND UNLABORED. NO S/S OF RESPIRATORY DISTRESS NOTED. ALL SAFETY MEASURES IMPLEMENTED. BED WHEELS ON LOCKED, BED IN LOW POSITION AND CALL LIGHT WITHIN REACH.
[2022-03-22] MEDS: VANCOMYCIN 750 MG in DEXTROSE 5% 250 ML IV SCH ×2 (05:17→18:00)
[2022-03-22 06:31] LABS: BASOPHILS % (AUTO) 0.4 % (0.0-2.0); EOSINOPHILS # (AUTO) 0.1 K/uL (0-0.4); HEMATOCRIT 28.9 % (36-52); HEMOGLOBIN 9.4 g/dL (12.0-18.0); LYMPHOCYTES # (AUTO) 1.5 K/uL (2.0-11.5); LYMPHOCYTES % (AUTO) 14.8 % (20.5-51.1); MEAN CORPUSCULAR HEMOGLOBIN 30 pg (27-31); MEAN CORPUSCULAR HGB CONC 33 g/dL (33-37); MEAN CORPUSCULAR VOLUME 93.5 fL (80-94); MONOCYTES # (AUTO) 0.8 K/uL (0.8-1.0); MONOCYTES % (AUTO) 7.5 % (1.7-9.3); NEUTROPHILS # (AUTO) 7.8 K/uL (1.8-7.7); NEUTROPHILS % (AUTO) 76.3 % (42.2-75.2); PLATELET COUNT (AUTO) 217 K/uL (140-450); RED BLOOD CELL COUNT(AUTO) 3.09 MIL/uL (4.20-6.10); RED CELL DISTRIBUTION WIDTH 14.7 % (11.6-13.7); WHITE BLOOD COUNT (AUTO) 10.3 K/uL (4.8-10.8)
[2022-03-22 06:38] LABS: ANION GAP 9.5 (8-16); CARBON DIOXIDE 27.3 mmol/L (21-32); CREATININE 1.1 mg/dL (0.6-1.3); POTASSIUM 3.8 mmol/L (3.5-5.1)
--- NOTE | 2022-03-22 07:30 | NUR ---
RECEIVED BEDSIDE REPORT FROM SKIP LOADER NURSE. PT STABLE. NO S/S OF DISTRESS. ALL SAFETY MEASURES IN PLACE. CALL LIGHT IN REACH. TUBE FEEDING RUNNING PER MD ORDER
--- NOTE | 2022-03-22 07:37 | NUR ---
PT IS STABLE. ENDORSED PT TO MORNING SHIFT NURSE FOR CONTINUITY OF CARE.
[2022-03-22 08:00] VITALS: BP 98/51
[2022-03-22] MEDS: PANTOPRAZOLE 40 MG INJ VIAL IVP SCH (09:04)
[2022-03-22] MEDS: ECOTRIN 81 MG TABEC PO SCH (09:05)
[2022-03-22] MEDS: LITHIUM CARBONATE 300 MG TAB PO SCH ×3 (09:05→17:00)
[2022-03-22] MEDS: levETIRAcetam 100 MG/ML ORASYR GT SCH ×2 (09:12→21:43)
--- NOTE | 2022-03-22 12:00 | NUR ---
PT TEMP ELEVATED 99.9, ICE PACKS PROVIDED FOR PT COMFORT AND TEMP REDUCTION. WILL CONTINUE TO MONITOR. NO S/S OF DISTRESS. CALL LIGHT IN REACH. ALL SAFETY MEASURES IN PLACE
[2022-03-22 16:00] VITALS: BP 101/59
[2022-03-22] MEDS ORDERED: NACL 0.9% 1,000 ML IV SCH (16:55)
--- NOTE | 2022-03-22 16:56 | NUR ---
PT BP 83/54, NOTIFIED DR. MONREAL. 1L NS BOLUS ORDERED.
--- NOTE | 2022-03-22 19:21 | NUR ---
ENDORSED PT TO BOTTOM SCRUBBER NURSE
--- NOTE | 2022-03-22 19:22 | NUR ---
RECEIVED ENDORSEMENT FROM BABS DANG, PATIENT WAS STABLE DURING CHANGE OF SHIFT. PATIENT IN BED AWAKE MOANING. PATIENT WAS CHANGED BECAUSE OF LOOSE STOOL. PATIENT WAS KEPT CLEEN ANS DRY BY NURSING AND PHARMACY OPERATIONS MANAGER. MOANING STOPPED AFTER HE WAS CHANGED AND REPOSITIONED. FOLLOWS WITH HIS EYES NON VERBAL. PATIENT SHOWS NO S/S OF PAIN/DISCOMFORT. PATIENT SHOWS NO S/S OF RESPIRATORY DISTRESS, NURSING NOTED CHEST RISING AND FALLING WITHOUT INCIDENT. SIDE RAILS UP X 2 FOR SAFETY AND ADJUSTMENTS. BED AT THE LOWEST LEVEL CALL LIGHT AT HEAD FOR MENTAL STIMULATION. REACH FOR ASSISTANCE AND NEEDS. NURSING WILL FREQUENT THE ROOM FOR ANTICIPATED NEEDS. [email or web address]
[2022-03-22 20:00] VITALS: BP 99/59
--- NOTE | 2022-03-22 20:00 | NUR ---
Patient's Plan of Care was discussed and reviewed with SMOKED MEAT PREPARER: DALE SANTO
[2022-03-22] MEDS: clonazePAM 0.5 MG TAB PO SCH (21:00)
[2022-03-22] MEDS: ATORVASTATIN 20 MG TAB PO SCH (21:45)
--- NOTE | 2022-03-22 22:31 | NUR ---
PATIENT HAS BEEN CHANGE FOR THE SECOND TIME WITH LOOSE STOOL. PATIENT WAS KEPT CLEAN AND DRY. NURSING WILL FREQUENT THE ROOM FOR ANTICIPATED ASSISTANCE BECAUSE PATIENT IS UNABLE TO VERBALIZE NEEDS OR USE CALL LIGHT. [email or web address]
--- NOTE | 2022-03-22 23:21 | NUR ---
PATIENT NOTED IN BED ASLEEP WITH HEAD OF BED ELEVATED TO PREVENT ASPIRATION WHILE TUBE FEEDING IS RUNNING. NO NOTED S/S OF PAIN/DISCOMFORT AT THIS TIME. NO NOTED RESPIRATORY DISTRESS AT THIS TIME. [email or web address]
--- NOTE | 2022-03-23 01:30 | NUR ---
PATIENT REMAINS CLEAN ANS INTACT. PATIENT NOTED ASLEEP WITH HEAD OF BED ELEVATED. NURSING WILL FREQUENT THID ROOM FOR ANTICIPATED NEEDS OF THE PATIENT. [email or web address]
--- NOTE | 2022-03-23 03:36 | NUR ---
PATIENT NOTED IN BED ASLEEP. NO NOTED S/S OF PAIN/DISCOMFORT AT THIS TIME. NO NOTED RESPIRATORY DISTRESS AT THIS TIME. [email or web address]
[2022-03-23 04:00] VITALS: BP 128/43
--- NOTE | 2022-03-23 06:40 | NUR ---
TRANS IN FROM MED SURG THIS 61 YEAR OLD MALE PATIENT PER BED. ASSISTED IN ICU 3. PATIENT IS ALERT, WITH IVF IN PROGRESS D5NS TO KVO VIA G 20 IV CANNULA ON LEFT FOREARM. WITH G TUBE IN PLACE AND ON CONTINOUS TUBE FEEDING GLUCERNA 1.2 AT 40 ML/HR. TEMP. CHECKED 98.1.
--- NOTE | 2022-03-23 07:15 | NUR ---
RECEIVED BEDSIDE REPORT FROM GEORGE HERNANDES RN. PT ARRIVED ICU FROM [facility] AT 0640 ON 03/23/2022 FOR CONTINUITY OF CARE. FULL CODE. NKA. VSS. NOT ABLE TO ASSESS NEURO DUE TO PT CONDITION. IRREGULAR TACHYCARDIA. NO S/S OF RESPIRATORY DISTRESS. G TUBE FEEDING RUNNING, GLUCERNA 50ML/HR WITH 150 FWF Q 4HR. INCONTINENT. GENERALIZED WEAKNESS, BEDREST. IV AT LT FOREARM 20G SALINE LOCK. SKIN INTACT.
--- NOTE | 2022-03-23 07:20 | NUR ---
ENDORSED TO RN OCTOBER FOR CONTINUITY OF CARE.
[2022-03-23 07:29] LABS: BASOPHILS % (AUTO) 0.1 % (0.0-2.0); EOSINOPHILS # (AUTO) 0.2 K/uL (0-0.4); EOSINOPHILS % (AUTO) 1.8 % (0.0-4.0); HEMATOCRIT 26.8 % (36-52); HEMOGLOBIN 8.9 g/dL (12.0-18.0); LYMPHOCYTES # (AUTO) 1.2 K/uL (2.0-11.5); LYMPHOCYTES % (AUTO) 12.6 % (20.5-51.1); MEAN CORPUSCULAR HEMOGLOBIN 31 pg (27-31); MEAN CORPUSCULAR HGB CONC 33 g/dL (33-37); MEAN CORPUSCULAR VOLUME 93.4 fL (80-94); MONOCYTES # (AUTO) 0.8 K/uL (0.8-1.0); NEUTROPHILS # (AUTO) 7.3 K/uL (1.8-7.7); NEUTROPHILS % (AUTO) 77.5 % (42.2-75.2); PLATELET COUNT (AUTO) 198 K/uL (140-450); RED BLOOD CELL COUNT(AUTO) 2.87 MIL/uL (4.20-6.10); RED CELL DISTRIBUTION WIDTH 14.7 % (11.6-13.7); WHITE BLOOD COUNT (AUTO) 9.5 K/uL (4.8-10.8)
[2022-03-23 07:30] LABS: ANION GAP 2.2 (8-16); CARBON DIOXIDE 27.9 mmol/L (21-32); CREATININE 0.9 mg/dL (0.6-1.3); POTASSIUM 4.1 mmol/L (3.5-5.1)
[2022-03-23 08:00] VITALS: BP 105/62
[2022-03-23] MEDS: VANCOMYCIN 750 MG in DEXTROSE 5% 250 ML IV SCH ×2 (08:40→17:36)
[2022-03-23] MEDS: levETIRAcetam 100 MG/ML ORASYR GT SCH ×2 (09:06→21:01)
[2022-03-23] MEDS: ECOTRIN 81 MG TABEC PO SCH (09:07)
[2022-03-23] MEDS: PANTOPRAZOLE 40 MG INJ VIAL IVP SCH (09:08)
--- NOTE | 2022-03-23 09:38 | NUR ---
DR JOCELIN DUDLEY AT BEDSIDE. UPDATED PT INFORMATION. NOTICED PT IV INFILTRATED WITH VANCOMYCIN. IV FLUID STOPPED, IV ACCESS REMOVED. APPLIED ICE PACK AND WARM PACK. WILL CONTINUE TO MONITOR. NEW IV ACCESS ESTABLISHED, 20 G AT RT AC.
[2022-03-23] MEDS: LITHIUM CARBONATE 300 MG TAB PO SCH ×3 (09:43→17:35)
[2022-03-23 16:00] VITALS: BP 99/55
--- NOTE | 2022-03-23 19:20 | NUR ---
RECEIVED REPORT FROM OFFGOING RN. PT IS CURRENTLY BEING CLEANED UP FROM HAVING A COPIOUS AMT OF DARK GREEN FOUL SMELLING STOOL. PT CAME INTO THE ED DEPT WITH COMPLAINT OF FEVER X 2 DAYS. HE'S AFEBRILE AT THIS TIME. TEMP 97.8 AX.PT HAS A PEG TUBE ON THE RUQ OF THE ABD WITH GLUCERNA 1.2 AT 50CC/HOUR AND FREE WATER 150 Q 6 HOURS. HIS RESIDUAL IS 10CC. IV ACCESS IS NOW IN THE RAC MOVED FROM LEFT FOREARM S/P INFILTRATION. ALTERNATING HOT AND COLD COMPRESSES TO THE SITE FOR PHLEBITIS. PT IS APHASIC AND MOANS FOR COMMUNICATION. HE HAS FOOT DROP ON THR RIGHT FOOT. AND HIS HANDS ARE BALLED IN A FIST POSITION AND HE KEEPS HIS ARMS FLODED.
--- NOTE | 2022-03-23 19:28 | NUR ---
ENDORSE TO SVITLANA HERNANDES RN FOR CONTINUITY OF CARE.
[2022-03-23] MEDS: clonazePAM 0.5 MG TAB PO SCH (21:03)
[2022-03-23] MEDS: ATORVASTATIN 20 MG TAB PO SCH (21:04)
--- NOTE | 2022-03-23 21:30 | NUR ---
PT IS HAVING A 2ND LARGE LIQUID STOOL. [facility] NURSE TEXT DR. MONREAL AND SECURED AN ORDER FOR A FLEXISEAL.THE TUBE WAS INSERTED AND FILLED WITH 45CC OF H20 AND THE PT PASSED STOOL THROUGH THE TUBE IMMEDIATELY.
[2022-03-24] VITALS: BP 89/49
[2022-03-24 04:00] VITALS: BP 118/72
[2022-03-24 05:52] LABS: BASOPHILS % (AUTO) 0.2 % (0.0-2.0); EOSINOPHILS # (AUTO) 0.1 K/uL (0-0.4); EOSINOPHILS % (AUTO) 0.7 % (0.0-4.0); HEMATOCRIT 28.7 % (36-52); HEMOGLOBIN 9.4 g/dL (12.0-18.0); LYMPHOCYTES # (AUTO) 0.5 K/uL (2.0-11.5); LYMPHOCYTES % (AUTO) 4.8 % (20.5-51.1); MEAN CORPUSCULAR HEMOGLOBIN 31 pg (27-31); MEAN CORPUSCULAR HGB CONC 33 g/dL (33-37); MEAN CORPUSCULAR VOLUME 94.4 fL (80-94); MONOCYTES # (AUTO) 0.5 K/uL (0.8-1.0); MONOCYTES % (AUTO) 4.7 % (1.7-9.3); NEUTROPHILS # (AUTO) 9.8 K/uL (1.8-7.7); NEUTROPHILS % (AUTO) 89.6 % (42.2-75.2); PLATELET COUNT (AUTO) 194 K/uL (140-450); RED BLOOD CELL COUNT(AUTO) 3.04 MIL/uL (4.20-6.10); RED CELL DISTRIBUTION WIDTH 14.7 % (11.6-13.7)
[2022-03-24 05:55] LABS: ANION GAP 7.9 (8-16); CARBON DIOXIDE 27.6 mmol/L (21-32); CREATININE 0.9 mg/dL (0.6-1.3); POTASSIUM 3.5 mmol/L (3.5-5.1)
[2022-03-24] MEDS: VANCOMYCIN 750 MG in DEXTROSE 5% 250 ML IV SCH ×2 (06:07→17:18)
--- NOTE | 2022-03-24 07:15 | NUR ---
RECEIVED BEDSIDE REPORT FROM SVITLANA HERNANDES RN. UPDATED PT INFORMATION. LUNG SOUND CLEAR BILATERAL. NO S/S OF RESPIRATORY DISTRESS. AFEBRILE. RA. G TUBE FEEDING RUNNING, 50ML WITH 150 ML Q 6HR. PT TOLERATE WELL. PT HAD 2 LARGE LIQUID STOOL, RECTAL TUBE IN PLACE. PT BEDREST. SKIN INTACT. VSS. WILL CONTINUE TO MONITOR.
--- NOTE | 2022-03-24 07:24 | NUR ---
REPORT GIVEN TO RICHARD FOR CONTINUITY OF CARE.
[2022-03-24 08:00] VITALS: BP 121/63
[2022-03-24] MEDS: PANTOPRAZOLE 40 MG INJ VIAL IVP SCH (08:16)
[2022-03-24] MEDS: levETIRAcetam 100 MG/ML ORASYR GT SCH ×2 (08:17→22:02)
[2022-03-24] MEDS: ECOTRIN 81 MG TABEC PO SCH (08:17)
[2022-03-24] MEDS: LITHIUM CARBONATE 300 MG TAB PO SCH ×3 (08:20→17:17)
--- NOTE | 2022-03-24 09:30 | NUR ---
0929 DR MONREAL ROUNDING AT BEDSIDE. PT INFORMATION UPDATED. DR MONREAL ORDERED C.DIFF TEST, BEDSIDE CXR.
--- NOTE | 2022-03-24 09:55 | NUR ---
NOTIFIED DR. MONREAL PT K 3.5. DR MONREAL WANTED TO SEE K LEVEL ON 03/25/2022, THEN MAKE A FURTHER DECISION.
--- NOTE | 2022-03-24 10:06 | NUR ---
PT IS GOING TO BE TRANSFERRED TO [facility] [id number]. GIVEN REPORT TO AMOL DANG. ALL QUESTIONS ANSWERED.
[2022-03-24 10:25] VITALS: BP 105/65
--- NOTE | 2022-03-24 10:25 | NUR ---
PATIENT ARRIVED IN UNIT AT 1025 WITH ICU NURSE. PATIENT IS AWAKE, NON-VERBAL AND UNABLE TO FOLLOW COMMAND. RESPIRATION EVEN UNLABORED ON ROOM AIR. NO DISTRESS NOTED. SKIN IS WARM AND DRY. IV PATENT AND INTACT. TUBE FEEDING NOTED. RECTAL TUBE NOTED. CONTACT PRECAUTION IN PLACE FOR R/O C-DIFF. ALL SAFETY MEASURES IN PLACE. BED IS AT LOW POSITION. CALL LIGHT WITHIN REACH. WILL CONTINUE TO MONITOR.
[2022-03-24] MEDS ORDERED: cefTRIAXone 1,000 MG VIAL ONE (10:39)
--- NOTE | 2022-03-24 12:15 | NUR ---
SCHEDULED MEDS GIVEN PER ORDER. CHECKED G-TUBE RESIDUAL PATIENT TOLERATING THE FEEDING. WILL CONTINUE TO MONITOR
--- NOTE | 2022-03-24 14:41 | NUR ---
LAB CALLED IN REGARDS TO PATIENT BLOOD CULTURE SENSITIVITY RESULT AND STOOL SPECIMEN PER LAB RESULT STILL PENDING PROBABLY TOMORROW.
--- NOTE | 2022-03-24 14:41 | NUR ---
MADE ROUNDS, PATIENT IS AWAKE, NO DISTRESS NOTED. WILL CONTINUE TO MONITOR
--- NOTE | 2022-03-24 15:58 | NUR ---
PT BLOOD PRESSURE 82/55 (64) HR 88 NOTIFIED , AWAITING FOR CALLBACK
[2022-03-24 16:00] VITALS: BP 82/55
--- NOTE | 2022-03-24 17:42 | NUR ---
PAGED MD AGAIN IN REGARDS TO PATIENT BP, PER MD BOLUS PATIENT 1L OF NS
[2022-03-24] MEDS ORDERED: NACL 0.9% 1,000 ML IV ONE (17:45)
--- NOTE | 2022-03-24 18:30 | NUR ---
PM CARE PROVIDED
--- NOTE | 2022-03-24 19:09 | NUR ---
RECEIVED PT REPORT FROM DAY SHIFT NURSE FOR CONTINUITY OF CARE. PT IS ON BED, NON VERBAL AND NON AMBULATORY. PT IS AWAKE AND RESPONSIVE WITH SOUND TO STIMULI. SKIN INTACT. PT IS WITH GTUBE FEEDING OF GLUCERNA 1.2 INFUSING AT 50ML/HR, INTACT AND PATENT. PT TOLERATES WELL WITH FEEDING. IV SALINE LOCK AT RIGHT AC INTACT AND PATENT, FLUID INFUSING. WILL CONTINUE MONITORING.
--- NOTE | 2022-03-24 19:10 | NUR ---
ENDORSED PATIENT TO DATA ENTRY EMAIL PROCESSOR NURSE FOR CONTINUITY OF CARE
[2022-03-24] MEDS: clonazePAM 0.5 MG TAB PO SCH (22:04)
[2022-03-24] MEDS: ATORVASTATIN 20 MG TAB PO SCH (22:04)
--- NOTE | 2022-03-24 23:00 | NUR ---
SALINE LOCK ON RIGHT AC IS DISLODGED, RIGHT UPPER ARM NOTED SWELLING. DISCONTINUE SALINE LOCK. REINSERT IV SALINE LOCK ON RIGHT LATERAL FOREARM WITH GOOD BLOOD RETURN, SALINE LOCK OF 22G.
[2022-03-25] VITALS: BP 104/59
[2022-03-25] MEDS: ACETAMINOPHEN 325 MG TAB PO PRN ×2 (01:27→21:53)
--- NOTE | 2022-03-25 01:27 | NUR ---
PT HAS ELEVATED BODY TEMP. = 100.4, TYLENOL ADMINISTERED ORDERED.
--- NOTE | 2022-03-25 02:27 | NUR ---
PT BODY TEMP = 97.8. PT RESPONSIVE ON STIMULI.
--- NOTE | 2022-03-25 04:30 | NUR ---
PT BP TAKEN X3 68/25, 68/35 AND 78/38, REPORTED TO DR. GLORIA MD ORDER BOLUS X 2 BOTTLES AND MIDODRINE 20MG TO BE ADMINISTERED THIS TIME. PT IS RESPONSIVE ON STIMULI.
[2022-03-25] MEDS ORDERED: NACL 0.9% 2,000 ML IV SCH (04:55)
[2022-03-25] MEDS ORDERED: MIDODRINE 5 MG TAB GT SCH (04:55)
--- NOTE | 2022-03-25 06:00 | NUR ---
BP CHECKED = 90/58
[2022-03-25] MEDS: VANCOMYCIN 750 MG in DEXTROSE 5% 250 ML IV SCH (06:41)
[2022-03-25 07:01] LABS: BASOPHILS % (AUTO) 0.2 % (0.0-2.0); EOSINOPHILS # (AUTO) 0.1 K/uL (0-0.4); EOSINOPHILS % (AUTO) 0.5 % (0.0-4.0); HEMATOCRIT 26.2 % (36-52); HEMOGLOBIN 8.3 g/dL (12.0-18.0); LYMPHOCYTES # (AUTO) 1.3 K/uL (2.0-11.5); LYMPHOCYTES % (AUTO) 9.6 % (20.5-51.1); MEAN CORPUSCULAR HEMOGLOBIN 30 pg (27-31); MEAN CORPUSCULAR HGB CONC 32 g/dL (33-37); MEAN CORPUSCULAR VOLUME 95.2 fL (80-94); MONOCYTES % (AUTO) 7.8 % (1.7-9.3); NEUTROPHILS # (AUTO) 10.8 K/uL (1.8-7.7); NEUTROPHILS % (AUTO) 81.9 % (42.2-75.2); PLATELET COUNT (AUTO) 162 K/uL (140-450); RED BLOOD CELL COUNT(AUTO) 2.75 MIL/uL (4.20-6.10); RED CELL DISTRIBUTION WIDTH 14.7 % (11.6-13.7); WHITE BLOOD COUNT (AUTO) 13.1 K/uL (4.8-10.8)
[2022-03-25 07:19] LABS: ANION GAP 8.2 (8-16); CARBON DIOXIDE 25.5 mmol/L (21-32); CREATININE 1.1 mg/dL (0.6-1.3); POTASSIUM 3.7 mmol/L (3.5-5.1)
--- NOTE | 2022-03-25 07:45 | NUR ---
ENDORSED TO DAY SHIFT NURSE FOR CONTINUITY OF CARE. PT IS AWAKE AND RESPONSIVE. IV FLUID AND TUBE FEEDING ARE INFUSING WELL.
[2022-03-25 08:00] VITALS: BP 91/41
[2022-03-25] MEDS: LITHIUM CARBONATE 300 MG TAB PO SCH ×3 (10:06→18:15)
[2022-03-25] MEDS: ECOTRIN 81 MG TABEC PO SCH (10:06)
[2022-03-25] MEDS: levETIRAcetam 100 MG/ML ORASYR GT SCH ×2 (10:06→21:54)
[2022-03-25] MEDS: PANTOPRAZOLE 40 MG INJ VIAL IVP SCH (10:09)
--- NOTE | 2022-03-25 13:20 | NUR ---
03/25/22 RD FOLLOW UP COMPLETED PLEASE REFER TO NUTRITION ASSESSMENT UNDER CARE ACTIVITY FOR ESTIMATED NUTRITIONAL NEEDS. 1. RECOMMEND GLUCERNA 1.2 @ 60 ML/HR TOLERATED WITH PROSOURCE BID -FWF: 200ML Q6H OR PER MD -WILL PROVIDE 100% ESTIMATED NUTRIENT NEEDS; ADEQUATE 2. MONITOR WEIGHT CHANGES 3. RD TO FOLLOW-UP 2-3 DAYS, HIGH RISK GABRIELLA TORIBIO RD Addendum: 03/26/22 at [address] -ESTEBAN SPOKE WITH RN ABOUT NEW TF RECOMMENDATIONS: GLUCERNA 1.2 @ 50 ML/HR WITH PROSOURCE BID D/T PT INTUBATED AND ON PROPOFOL @ 9.2 ML/HR. PT WILL RECEIVE 100% OF ESTIMATED NEEDS. ESTEBAN WILL CONTINUE TO MONITOR. GABRIELLA TORIBIO RD
[2022-03-25] MEDS: MIDODRINE 5 MG TAB PO SCH ×2 (13:30→18:14)
--- NOTE | 2022-03-25 16:11 | NUR ---
PT. WITH LOW NIRAV SCALE AT HIGH RISK, CONTINUE TO FOLLOW PRESSURE INJURY PREVENTION INTERVENTIONS. -POSITIONING: TURN AND REPOSITION PATIENT Q 2H OR SOONER USE PILLOWS TO KEEP BONY PROMINENCES FROM DIRECT CONTACT WITH SURFACES USE REPOSITIONING WEDGES TO PROVIDE 30-DEGREE ANGLE FOR SIDE LYING POSITIONS OFFLOADING OR FOAM DRESSING TO ALL TUBING TO PREVENT MEDICAL DEVICES RELATED PRESSURE INJURY -RE-EVALUATING AND MANAGING INCONTINENCE MONITOR SKIN CONDITION DURING POSITION CHANGE DO NOT MASSAGE REDNESS, BONY PROMINENCES FREQUENT WALTER-CARE AND PROVIDE BARRIER CREAMS PRN IF SOILING MOISTURE CONTROL BY OFFER BED ZIMMER/URINAL /ABSORBENT PAD TO WICK AND HOLD MOISTURE KEEP SKIN DRY AND PROTECT FROM FRICTION -MANAGE FRICTION/SHEAR/MOBILITY KEEP HOB AT THE LOWEST LEVEL OF ELEVATION NO MORE THAN 30 DEGREE UNLESS OTHERWISE CONTRAINDICATED USE LIFT SHEET OR TRANSFER DEVICE TO MOVE PATIENT AND PREVENT LATERAL SHEER. PROTECT HEELS, ELBOWS BONY PROMINENCES WITH SKIN BERRIES OR FOAM DRESSING IF EXPOSED TO FRICTION OFFLOAD BILATERAL HEELS BY PLACING PILLOWS UNDER CALVES AT ALL TIMES, UNLESS OTHERWISE CONTRAINDICATED -PRESSURE REDISTRIBUTION SURFACE THERAPY ANGELA ISOFLEX MATTRESS -NUTRITION: PLEASE FOLLOW RD RECOMMENDATIONS AND OFFER NUTRITION SUPPLEMENTS IF ORDERED. PLEASE CONTACT WOUND CARE NURSE FOR ANY QUESTION AND CHANGE OF WOUND CONDITION
[2022-03-25 17:10] VITALS: BP 92/48
--- NOTE | 2022-03-25 20:49 | NUR ---
RN CALLED RT TO BEDSIDE DUE TO PT DESATURATING IN 70s. RN WAS INFORMED TO TITRATED O2 UP. RN NOT AT BEDSIDE ON MY ARRIVAL. FOUND PT WHO IS NONVERBAL AND IN UNCOMFORTABLE POSITION IN BEDSIDE. TITRATED 02 TO 6L NC WITH SPO2 92 TO 95%. CHECKED PT's TEMP 101.6. RN WAS CALLED TO BEDSIDE AND INFORMED ABOUT PT's TEMP. REPOSITION PT IN BED. BREATH SOUNDS CLEAR ON AUSCULTATION. Addendum: 03/25/22 at 2138 by Manish Barrios RT PT HAS NO RESPIRATORY HX. XRAY FROM 03/24/22 SHOWS NO ACUTE PULMONARY DISEASE.
[2022-03-25 21:00] VITALS: BP 102/60
--- NOTE | 2022-03-25 21:08 | NUR ---
RECIEVED PT NON VERBAL , W/ O2 SAT 75 % - WHILE NURSE BARTOLO GIVING THE REPORT - I TOUCH THE PT - HOT TO TOUCH , O2 SAT STILL IN LOW - CALL RT - STAT , PER RT INCREASE O2 SAT UP TO 7LPM / NC , W/ ON GOING G TUBE , BS 98 . PER BARTOLO THE RECTAL TUBE FELL OFF - HE WILL INFORM DOCTOR . FOR CLOSELY WATCH THE PT .
--- NOTE | 2022-03-25 21:10 | NUR ---
ENDORSED TO NURSE , PJ , INFORM RT ON DUTY INSPITE OF O2 7LPM/NC - THE O2 SAT IS 90 - THAT IS THE HIGHEST . T 100.9 - INFORM ALTON OLIVA . THERE IS TYLENOL RX FOR THE PT .
[2022-03-25] MEDS: clonazePAM 0.5 MG TAB PO SCH (21:48)
[2022-03-25] MEDS: ATORVASTATIN 20 MG TAB PO SCH (21:55)
--- NOTE | 2022-03-25 22:20 | NUR ---
CALLED TO BEDSIDE FOR DESATURATING AND HYPOTENSION. BOTH RTs WENT TO BEDSIDE. AT BEDSIDE NOTICED B/P 70/32 AND SPO2 82%. POX PROBE WAS LESS CONTACT ON PT's FINGER. CONNECTED PORTABLE POX SPO2 86%-88%. TITRATED 02 FROM 6L TO 12L ON [employer]ENT[employer] BUBBLE HUMIDIFIER. SPO2 IMPROVED TO 95%-97%. REPOSITIONED BLOOD PRESSURE CUFF STILL B/P IN LOW 70s. CALLED RAPID RESPONSE TEAM. DECISION WAS MADE TO TRANSFER PT TO ICU. PT WAS TRANSPORTED TO ICU AT APPROXIMATELY 2255. PT WAS TRANSPORTED VIA NRB MASK FOR OXYGENATION. PT WAS CONNECTED BACK TO [employer] BUBBLE HUMIDIFIER AT 15L. SPO2 94%. HAIRSPRING TRUING INSPECTOR WAS TOLD TO GET AN ORDER FOR CHEST X RAY. WILL CONTINUE TO MONITOR PT.
--- NOTE | 2022-03-25 22:30 | NUR ---
The patient Temperature 101.3, tylenol was given ,Temp went down 100.1, O2 saturation 90% NC 7L applied. BP went down 80/35, temperature 100.1, O2 SATURATION WENT DOWN TP 82%, MD notified, Order to transfer to ICU , and start on levophed to keep MAP >70, report endorsed to ICU nurse
[2022-03-25] MEDS ORDERED: NACL 0.9% 250 ML IV ONE (22:40)
--- NOTE | 2022-03-25 22:50 | NUR ---
TRANS IN FROM TELE THIS 61 YEAR OLD MALE PATIENT DUE TO HYPOTENSION; SBP RANGING FROM 60'S-70S, FLUID CHALLENGE 250 ML GIVEN DURING THE PHOTOSTATIC COPY MAKER, BUT BP REMAIN THE SAME. SO TRANSFERED TO ICU 1 FOR CRITICAL CARE MANAGEMENT ORDERED BY DR. CASTRO. PATIENT IS UNRESPONSIVE, ON 5 LITERS S02 94%. CARDIACSCOPE SHOWS ON SINUS RHYTHM HR 93/MIN NO ARRHYTHMIAS SEEN. ON CONTINUOUS TUBE FEEDING GLUCERNA 1.2 AT 60 ML/HR WITH WASTER FLUSH OF 200 ML Q 6 HRS VIA G TUBE.
[2022-03-25] MEDS ORDERED: NOREPINEPHRINE 4 MG/4 ML VIAL IV ONE (23:08)
[2022-03-25] MEDS: NOREPINEPHRINE 4 MG in DEXTROSE 5% 250 ML IV PRN (23:30)
--- NOTE | 2022-03-25 23:30 | NUR ---
STILL HYPOTENSION EVEN AFTER THE FLUID CHALLENGE GIVEN SO STARTED ON LEVOPHED DRIP AT 5 MCG/MIN THEN TITRATED PER PROTOCOL.
[2022-03-26] VITALS (26 sets, daily range): BP systolic 76–169; BP diastolic 32–105
--- NOTE | 2022-03-26 01:38 | NUR ---
CALLED TO BEDSIDE PT DESAT LOW 80s/HIGH 70s PT PLACED ON HFNC 40L 100% W/ SPO2 92% 5MINS POST INITIATION WILL CONTINUE TO MONITOR
[2022-03-26] MEDS ORDERED: NOREPINEPHRINE 4 MG/4 ML VIAL IV ONE ×2 (04:16→19:55)
--- NOTE | 2022-03-26 07:12 | NUR ---
RECEIVED BEDSIDE REPORT FROM KEEGAN RN FOR CONTINUITY OF CARE. PT NONVERBAL, PUPILS UNEQUAL, APHASIC. HIFLOW NC 40L FIO2 100%, FREQUENT COUGHING. ON CONTINUOUS LEVOPHED DRIP AT 15 MCG/MIN VIA L FA 20G IV. DELAYED CAPILLARY REFILL. G TUBE IN PLACE RUNNING GLUCERNA TUBE FEED AT 60 ML/HR FWF [address] Q6H[address] CHUX DIAPER IN PLACE, INCONTINENT OF BOWEL AND BLADDER. CONTRACTURE TO BLE. MILD WEAKNESS. TEMP 101.3, PLACED ICE PACKS TO AXILLA AND GROIN. TYLENOL GIVEN AT 0430. CONTACT PRECAUTION FOR CDIFF. BED IN LOWEST POSITION.
[2022-03-26] MEDS: MIDODRINE 5 MG TAB PO SCH ×3 (07:30→18:31)
--- NOTE | 2022-03-26 08:02 | NUR ---
PAGED DR. HERNANDEZ TO NOTIFY OF PT STATUS, INCLUDING DESATURATING TO MID-80'S INTERMITTENTLY. PHYSICIAN TO SEE PT.
--- NOTE | 2022-03-26 08:03 | NUR ---
RT AT BEDSIDE. PLACED PT ON NONREBREATHER 100% WITH HIFLOW 100% FIO2.
--- NOTE | 2022-03-26 08:25 | NUR ---
SEEN AND EXAMINED BY DR. CASTRO, NO NEW ORDERS.
[2022-03-26] MEDS: ECOTRIN 81 MG TABEC PO SCH (09:00)
[2022-03-26 09:11] LABS: BASOPHILS # (AUTO) 0.1 K/uL (0.00-0.22); BASOPHILS % (AUTO) 0.4 % (0.0-2.0); EOSINOPHILS # (AUTO) 0.4 K/uL (0-0.4); EOSINOPHILS % (AUTO) 1.8 % (0.0-4.0); HEMATOCRIT 31.1 % (36-52); HEMOGLOBIN 10.6 g/dL (12.0-18.0); LYMPHOCYTES # (AUTO) 3.1 K/uL (2.0-11.5); LYMPHOCYTES % (AUTO) 12.7 % (20.5-51.1); MEAN CORPUSCULAR HEMOGLOBIN 33 pg (27-31); MEAN CORPUSCULAR HGB CONC 34 g/dL (33-37); MEAN CORPUSCULAR VOLUME 96.4 fL (80-94); MONOCYTES # (AUTO) 1.3 K/uL (0.8-1.0); MONOCYTES % (AUTO) 5.1 % (1.7-9.3); NEUTROPHILS # (AUTO) 19.8 K/uL (1.8-7.7); PLATELET COUNT (AUTO) 574 K/uL (140-450); RED BLOOD CELL COUNT(AUTO) 3.23 MIL/uL (4.20-6.10); RED CELL DISTRIBUTION WIDTH 15.8 % (11.6-13.7); WHITE BLOOD COUNT (AUTO) 24.7 K/uL (4.8-10.8)
[2022-03-26] MEDS: levETIRAcetam 100 MG/ML ORASYR GT SCH ×2 (09:16→20:55)
[2022-03-26] MEDS: PANTOPRAZOLE 40 MG INJ VIAL IVP SCH (09:17)
[2022-03-26] MEDS: LITHIUM CARBONATE 300 MG TAB PO SCH ×3 (09:17→16:18)
--- NOTE | 2022-03-26 09:54 | NUR ---
SEEN AND EXAMINED BY DR. HERNANDEZ. PT ON NONREBREATHER AND HIFLOW SATTING 94%. BEGAN EMERGENT INTUBATION BY DR. HERNANDEZ. IVP ETOMIDATE 25 MG AND ROCURONIUM 50 MG. RT AT BEDSIDE BAGGING PT. DR. HERNANDEZ PLACED TRIPLE LUMEN CENTRAL LINE TO R FEMORAL. OK TO USE. Addendum: 03/26/22 at 1142 by Fior Dumont RN G TUBE PLACED TO CONTINUOUS SUCTION DURING AND SHORTLY AFTER INTUBATION. RT AT BEDSIDE TO ASSIST.
--- NOTE | 2022-03-26 09:55 | NUR ---
PT INTUBATED WITH A 7.5 ETT SECURED @23 TEETH/GUM BY . CO2 DETECTOR YELLOW COLOR CHANGE FOR PLACEMENT WITH BILATERAL BREATH SOUNDS. CXR TO BE ORDERED.
--- NOTE | 2022-03-26 10:13 | NUR ---
PT PLACED ON VENTILATOR VENT SETTINGS ORDERED BY AC 24, VT 400, PEEP 10 AND FIO2 100%. VENT ALARMS ON AND FUNCTIONING. AMBU BAG PRESENT AT BEDSIDE. VENT PLUGGED INTO RED OUTLET. WILL CONTINUE TO MONITOR.
[2022-03-26] MEDS ORDERED: fentaNYL citrate 1 MG in NACL 0.9% 80 ML IV PRN (10:20)
[2022-03-26] MEDS ORDERED: PROPOFOL 1000 MG/100 ML PREMIX 100 ML IV ONE (10:31)
[2022-03-26] MEDS: NOREPINEPHRINE 4 MG in DEXTROSE 5% 250 ML IV PRN (10:40)
[2022-03-26] MEDS: PROPOFOL 1000 MG/100 ML PREMIX 100 ML IV PRN (10:40)
[2022-03-26] MEDS ORDERED: ETOMIDATE 20 MG/10 ML VIAL IVP ONE (10:55)
[2022-03-26] MEDS ORDERED: ROCURONIUM 50 MG/5 ML VIAL IV ONE (10:55)
[2022-03-26] MEDS: CEFEPIME 2,000 MG in DEXTROSE 5% 100 ML IV SCH ×2 (10:56→23:00)
[2022-03-26] MEDS: ASPIRIN 81 MG TAB.CHEW PO SCH (10:56)
--- NOTE | 2022-03-26 11:30 | NUR ---
RESTARTED TUBE FEEDING. PT TOLERATING WELL.
--- NOTE | 2022-03-26 11:42 | NUR ---
XRAY AT BEDSIDE FOR STAT CXR.
[2022-03-26] MEDS ORDERED: VASOPRESSIN 20 UNITS in NACL 0.9% 250 ML IV SCH (12:35)
--- NOTE | 2022-03-26 13:03 | NUR ---
PER ABG RESULTS AND HYPOTENSION PEEP TITRATED TO 8cmH2O. NURSE MADE AWARE. WILL CONTINUE TO MONITOR.
[2022-03-26] MEDS ORDERED: PHENYLEPHRINE 10 MG in NACL 0.9% 250 ML IV PRN (13:05)
[2022-03-26] MEDS: metroNIDAZOLE 500 MG/NS PREMIX 100 ML IV SCH ×2 (13:07→20:54)
[2022-03-26 13:26] LABS: ANION GAP 12.6 (8-16); CARBON DIOXIDE 24.8 mmol/L (21-32); CREATININE 1.3 mg/dL (0.6-1.3); POTASSIUM 3.4 mmol/L (3.5-5.1)
--- NOTE | 2022-03-26 13:28 | NUR ---
PER CXR ETT ADVANCED 3cm NURSE MADE AWARE. WILL ORDER NEW CXR. PT RECEIVING ADEQUATE VT. WILL CONTINUE TO MONITOR.
[2022-03-26] MEDS ORDERED: EPINEPHrine PFS 0.1 MG/ML SYR IVP ONE (14:30)
[2022-03-26] MEDS ORDERED: SODIUM BICARBONATE 8.4% PFS 50 MEQ/50 ML SYR IVP ONE (14:30)
[2022-03-26] MEDS ORDERED: CODE BLUE PARTICIPANT 1 EA MISC MC ONE (14:30)
[2022-03-26] MEDS ORDERED: POTASSIUM CHLORIDE 20% 40 MEQ/15 ML UDC GT SCH (16:30)
--- NOTE | 2022-03-26 16:50 | NUR ---
SEEN AND EXAMINED BY DR. MTZ. NO NEW ORDERS.
--- NOTE | 2022-03-26 17:20 | NUR ---
SEEN AND EXAMINED BY DR. MCGOVERN. NO NEW ORDERS.
[2022-03-26] MEDS ORDERED: VANCOMYCIN PER PHARMACY MC PRN (17:40)
--- NOTE | 2022-03-26 18:25 | NUR ---
DR. HERNANDEZ CALLED AND WAS UPDATED ON PT VIA TELEPHONE. ORDERS TO ADJUST VENT SETTINGS. RT MADE AWARE.
--- NOTE | 2022-03-26 18:45 | NUR ---
COLLECTED URINE CULTURE AND SENT TO LAB.
--- NOTE | 2022-03-26 18:46 | NUR ---
LEVOPHED RAN DRY, SYSTOLIC WAS IN THE 50'S. UPON ASSESSMENT, PT HAS A FAINT PULSE AND WAS CLAMMY TO TOUCH. ONCE LEVOPHED WAS RESTARTED, BP INCREASED, MAP >65. Addendum: 03/26/22 at 1849 by Fior Dumont RN WAS AT 1445
--- NOTE | 2022-03-26 18:55 | NUR ---
LAB AT BEDSIDE TO COLLECT BLOOD CULTURE
--- NOTE | 2022-03-26 19:20 | NUR ---
PT HAD MEDIUM SIDE SOFT BROWN BM. CLEANED, TURNED AND REPOSITIONED.
--- NOTE | 2022-03-26 19:20 | NUR ---
RECEIVED REPORT CARLOS MANUEL SMITH RN. PT IN STATED CONDITION.
--- NOTE | 2022-03-26 19:25 | NUR ---
ENDORSED BEDSIDE REPORT TO SVITLANA DANG FOR CONTINUITY OF CARE.
[2022-03-26] MEDS ORDERED: PHENYLEPHRINE 10 MG/ML VIAL ONE (19:59)
[2022-03-26] MEDS: NACL 0.9% IV PRN (20:30)
[2022-03-26] MEDS: PHENYLEPHRINE IV PRN (20:30)
[2022-03-26] MEDS: VANCOMYCIN 750 MG in DEXTROSE 5% 250 ML IV SCH (20:54)
[2022-03-26] MEDS: clonazePAM 0.5 MG TAB PO SCH (20:57)
[2022-03-26] MEDS: ATORVASTATIN 20 MG TAB PO SCH (21:00)
[2022-03-26] MEDS: NOREPINEPHRINE 16 MG in DEXTROSE 5% 234 ML IV PRN (22:04)
[2022-03-27] VITALS (30 sets, daily range): BP systolic 61–129; BP diastolic 33–54
--- NOTE | 2022-03-27 00:25 | NUR ---
PT WAS IRRITABLE AND APPEARS TO BE BREAKING THROUGH SEDATION RN MADE AWARE AND FIO2 TITRATED TO 100 DUE TO DESAT. WILL CONTINUE TO MONITOR AND TITRATE TOLERATED
[2022-03-27] MEDS ORDERED: VASOPRESSIN 20 UNITS/ML VIAL ONE (00:39)
[2022-03-27] MEDS: PROPOFOL 1000 MG/100 ML PREMIX 100 ML IV PRN ×2 (02:00→21:34)
--- NOTE | 2022-03-27 02:30 | NUR ---
PT MODE SWITCHED TO PRVC DUE TO HIGH PRESSURES PT WAS IRRITABLE BUT PIP IMPROVED SLIGHTLY AND PT APPEARS TO BE SLIGHTLY MORE COMFORTABLE WILL CONTINUE TO MONITOR
[2022-03-27] MEDS ORDERED: NOREPINEPHRINE 4 MG/4 ML VIAL IV ONE (05:09)
[2022-03-27] MEDS: metroNIDAZOLE 500 MG/NS PREMIX 100 ML IV SCH ×3 (05:19→21:30)
[2022-03-27] MEDS: NOREPINEPHRINE 16 MG in DEXTROSE 5% 234 ML IV PRN (05:30)
[2022-03-27] MEDS: MIDODRINE 5 MG TAB PO SCH ×3 (06:42→19:15)
[2022-03-27] MEDS: NACL 0.9% IV PRN (07:00)
[2022-03-27] MEDS: PHENYLEPHRINE IV PRN (07:00)
--- NOTE | 2022-03-27 07:15 | NUR ---
RECEIVED REPORT FROM SVITLANA MEDICAL OR SURGICAL INSTRUMENT MAKER ALTON FOR CONTINUITY OF CARE. PT SEDATED, A&OX0. ETT TO VENT ACVC FIO2 90%, VT 400, RR 24, PEEP 8. SR ON MONITOR WITH INTERMITTENT PVC'S. TRIPLE LUMEN CENTRAL LINE TO R FEMORAL INFUSING LEVOPHED AT 30 MCG/MIN, VASOPRESSIN AT 0.03 UNITS/MIN, ROWAN-SYNEPHRINE AT 50 MCG/MIN, PROPOFOL AT 40 MCG/KG/MIN, AND NS TKO 5 ML/HR. 20G IV TO L UPPER FOREARM, SALINE LOCK. G TUBE IN PLACE RUNNING GLUCERNA TUBE FEED AT 60 ML/HR WITH 200ML FWF Q6H. GENERALIZED WEAKNESS. CONTACT [facility] FOR POSSIBLE CDIFF INFECTION BED IN LOWEST POSITION, WHEELS LOCKED. Addendum: 03/27/22 at 1247 by Fior Dumont RN F/C TO GRAVITY. FLEXI SEAL IN PLACE DRAINING BROWN MUCOID BRISTOL TYPE 6 STOOL.
[2022-03-27] MEDS: VANCOMYCIN 750 MG in DEXTROSE 5% 250 ML IV SCH ×2 (08:16→19:51)
[2022-03-27] MEDS: levETIRAcetam 100 MG/ML ORASYR GT SCH ×2 (08:45→21:29)
[2022-03-27] MEDS: PANTOPRAZOLE 40 MG INJ VIAL IVP SCH (08:45)
[2022-03-27] MEDS: LITHIUM CARBONATE 300 MG TAB PO SCH ×3 (08:46→17:31)
[2022-03-27] MEDS: ACETAMINOPHEN 325 MG TAB PO PRN (08:46)
[2022-03-27] MEDS: ASPIRIN 81 MG TAB.CHEW PO SCH (08:47)
--- NOTE | 2022-03-27 09:10 | NUR ---
SEEN AND EXAMINED BY DR. CASTRO. NO NEW ORDERS.
--- NOTE | 2022-03-27 09:20 | NUR ---
SEEN AND EXAMINED BY DR. HERNANDEZ. NO NEW ORDERS.
[2022-03-27] MEDS: CEFEPIME 2,000 MG in DEXTROSE 5% 100 ML IV SCH ×2 (10:54→23:25)
--- NOTE | 2022-03-27 11:30 | NUR ---
COLLECTED STOOL SAMPLE AND SENT TO LAB FOR CDIFF TESTING.
[2022-03-27 14:28] LABS: BASOPHILS % (AUTO) 0.1 % (0.0-2.0); EOSINOPHILS # (AUTO) 0.1 K/uL (0-0.4); EOSINOPHILS % (AUTO) 0.3 % (0.0-4.0); HEMATOCRIT 28.4 % (36-52); HEMOGLOBIN 8.8 g/dL (12.0-18.0); LYMPHOCYTES # (AUTO) 2.4 K/uL (2.0-11.5); LYMPHOCYTES % (AUTO) 11.2 % (20.5-51.1); MEAN CORPUSCULAR HEMOGLOBIN 30 pg (27-31); MEAN CORPUSCULAR HGB CONC 31 g/dL (33-37); MEAN CORPUSCULAR VOLUME 96.5 fL (80-94); MONOCYTES # (AUTO) 0.7 K/uL (0.8-1.0); MONOCYTES % (AUTO) 3.5 % (1.7-9.3); NEUTROPHILS # (AUTO) 17.9 K/uL (1.8-7.7); NEUTROPHILS % (AUTO) 84.9 % (42.2-75.2); PLATELET COUNT (AUTO) 201 K/uL (140-450); RED BLOOD CELL COUNT(AUTO) 2.94 MIL/uL (4.20-6.10); WHITE BLOOD COUNT (AUTO) 21.1 K/uL (4.8-10.8)
[2022-03-27 14:47] LABS: ALBUMIN 1.7 g/dL (3.4-5.0); ANION GAP 9.4 (8-16); CARBON DIOXIDE 21.3 mmol/L (21-32); CREATININE 1.4 mg/dL (0.6-1.3); MAGNESIUM 2.3 mg/dL (1.8-2.4); PHOSPHORUS 2.7 mg/dL (2.5-4.9); POTASSIUM 3.7 mmol/L (3.5-5.1); TOTAL BILIRUBIN 0.4 mg/dL (0.0-1.0)
--- NOTE | 2022-03-27 18:28 | NUR ---
LARGE BM, BRISTOL STOOL TYPE 6, BROWN MUCOID, CLEANED TURNED AND REPOSITIONED.
--- NOTE | 2022-03-27 19:16 | NUR ---
ENDORSED BEDSIDE REPORT TO DARIN DANG FOR CONTINUITY OF CARE.
--- NOTE | 2022-03-27 19:28 | NUR ---
RECEIVED REPORT FROM AM SHIFT. PATIENT WAS SEEN AND ASSESSED. PATIENT IS INTUBATED WITH ETT SIZE 7.5 AND SECURED WITH A BITING BLOCK ANCHOR-FAST 24cm @ TEETH. PATIENT IS ON VENTILATOR SUPPORT. VENTILATOR PLUGGED IN RED OUTLET. VENTILATOR ALARMS SET APPROPRIATELY AND AUDIBLE TO ENVIRONMENT. AMBU BAG AT BEDSIDE. HEAD OF BED GREATER THAN 30 DEGREES. NOTICED ADEQUATE BILATERAL CHEST RISE AND FALL. PATIENT IS IN NO RESPIRATORY DISTRESS AT THIS TIME. VENT SETTINGS: AC/PRVC RR 24, TARGETED Vt 400, PEEP 8, FiO2 75% WITH SPO2 OF 95%. BILATERAL BREATH SOUNDS ON AUSCULTATION; UPPER LOBES: COARSE CRACKLES LOWER LOBES: COARSE CRACKLES. SUCTION: MODERATE AMOUNT OF WHITE/YELLOW THICK SECRETIONS FROM ETT AND SMALL WHITE THIN ORALLY. WILL CONTINUE TO MONITOR PATIENT.
--- NOTE | 2022-03-27 19:30 | NUR ---
Received patient with ongoing propofol and levophed drips. v/s stable no distress noted.
--- NOTE | 2022-03-27 19:52 | NUR ---
PHONE CALL TO AFTER HOURS PHARMACY,SPOKE WITH LICHA SANTA THROUGH , HOLD 2000 DOSE.DARIN DANG AWARE
[2022-03-27] MEDS: ATORVASTATIN 20 MG TAB PO SCH (21:35)
[2022-03-28] VITALS (30 sets, daily range): BP systolic 88–115; BP diastolic 35–51
--- NOTE | 2022-03-28 00:02 | NUR ---
AT BEDSIDE. PT IS ON FiO2 OF 75% WITH SPO2 OF 97%. TITRATED FiO2 FROM 75% TO 65%. CURRENT SPO2 94%. NO RESPIRATORY DISTRESS NOTED AT THIS TIME. PT IS TOLERATING CHANGES WELL. RN NOTIFIED. WILL CONTINUE TO MONITOR PT.
[2022-03-28] MEDS: NOREPINEPHRINE 16 MG in DEXTROSE 5% 234 ML IV PRN ×2 (01:13→20:32)
[2022-03-28] MEDS: PROPOFOL 1000 MG/100 ML PREMIX 100 ML IV PRN ×2 (03:37→22:44)
--- NOTE | 2022-03-28 04:13 | NUR ---
AT BEDSIDE. PT IS ON FiO2 OF 65% WITH SPO2 OF 98%. TITRATED FiO2 FROM 65% TO 55%. CURRENT SPO2 96%. NO RESPIRATORY DISTRESS NOTED AT THIS TIME. PT IS TOLERATING CHANGES WELL. RN NOTIFIED. WILL CONTINUE TO MONITOR PT.
[2022-03-28] MEDS: metroNIDAZOLE 500 MG/NS PREMIX 100 ML IV SCH ×3 (04:49→20:35)
[2022-03-28 05:52] LABS: BASOPHILS % (AUTO) 0.1 % (0.0-2.0); EOSINOPHILS # (AUTO) 0.3 K/uL (0-0.4); EOSINOPHILS % (AUTO) 1.3 % (0.0-4.0); HEMATOCRIT 24.7 % (36-52); HEMOGLOBIN 7.7 g/dL (12.0-18.0); LYMPHOCYTES # (AUTO) 1.5 K/uL (2.0-11.5); MEAN CORPUSCULAR HEMOGLOBIN 30 pg (27-31); MEAN CORPUSCULAR HGB CONC 31 g/dL (33-37); MEAN CORPUSCULAR VOLUME 96.1 fL (80-94); MONOCYTES # (AUTO) 0.7 K/uL (0.8-1.0); MONOCYTES % (AUTO) 3.2 % (1.7-9.3); NEUTROPHILS # (AUTO) 18.3 K/uL (1.8-7.7); NEUTROPHILS % (AUTO) 88.4 % (42.2-75.2); PLATELET COUNT (AUTO) 198 K/uL (140-450); RED BLOOD CELL COUNT(AUTO) 2.57 MIL/uL (4.20-6.10); RED CELL DISTRIBUTION WIDTH 16.1 % (11.6-13.7); WHITE BLOOD COUNT (AUTO) 20.7 K/uL (4.8-10.8)
[2022-03-28] MEDS: MIDODRINE 5 MG TAB PO SCH ×3 (06:18→20:34)
[2022-03-28 06:27] LABS: ALBUMIN 1.6 g/dL (3.4-5.0); ANION GAP 7.4 (8-16); CARBON DIOXIDE 23.5 mmol/L (21-32); CREATININE 1.4 mg/dL (0.6-1.3); MAGNESIUM 2.7 mg/dL (1.8-2.4); PHOSPHORUS 1.6 mg/dL (2.5-4.9); TOTAL BILIRUBIN 0.5 mg/dL (0.0-1.0)
[2022-03-28 06:30] LABS: POTASSIUM 2.9 mmol/L (3.5-5.1)
[2022-03-28] MEDS ORDERED: KCL 20 MEQ/WATER INJ PREMIX 200 ML IV SCH (06:50)
--- NOTE | 2022-03-28 07:00 | NUR ---
RECEIVED PT ON PRVC RR24,400,+8,55%. VENT PLUGGED INTO RED OUTLET AND WHEELS ARE LOCKED. ALARMS ARE SET AND AUDIBLE. AMBUBAG AT BEDSIDE. COARSE CRACKLES THROUGHOUT AND SUCTIONED THICK RED TINGED SECRETIONS.
--- NOTE | 2022-03-28 07:24 | NUR ---
Endorsed patient to Mesha RN in stable condition
--- NOTE | 2022-03-28 07:30 | NUR ---
RECRIVED REPORT FROM VENDING ROUTE DRIVER. PT TRACH TO VENT, AC /PRVC 55% VT 400 RATR 18 PEEP 5 TOLERATED WELL. IV HAS TCL ON RT FEM. GT FEEDING GLUCERNA 1.2 TOLERATED WELL, MOMIN TO GRAVITY DRAINAGE , RECTAL BAG HAS SMALL LIQUID STOOL,
[2022-03-28] MEDS: PANTOPRAZOLE 40 MG INJ VIAL IVP SCH (09:00)
[2022-03-28] MEDS: ASPIRIN 81 MG TAB.CHEW PO SCH (09:00)
[2022-03-28] MEDS: LITHIUM CARBONATE 300 MG TAB PO SCH ×3 (09:00→20:28)
[2022-03-28] MEDS: levETIRAcetam 100 MG/ML ORASYR GT SCH ×2 (09:00→20:35)
--- NOTE | 2022-03-28 09:30 | NUR ---
SEEN BY DR. PARDO NO ORDER CHANGED
--- NOTE | 2022-03-28 09:31 | NUR ---
SEEN BY DR GUERRERO ORDER ABG TO BE DONE
--- NOTE | 2022-03-28 09:44 | NUR ---
ABG RESULT SHOW TO EDVIN CARMEN NO ORDER CHANGED.
[2022-03-28] MEDS ORDERED: VANCOMYCIN 1,000 MG in NACL 0.9% 250 ML IV SCH (10:00)
[2022-03-28] MEDS: CEFEPIME 2,000 MG in DEXTROSE 5% 100 ML IV SCH ×2 (11:00→22:50)
--- NOTE | 2022-03-28 14:42 | NUR ---
03/28/22 RD FOLLOW UP COMPLETED PLEASE REFER TO NUTRITION ASSESSMENT UNDER CARE ACTIVITY FOR ESTIMATED NUTRITIONAL NEEDS. 1. CONTINUE WITH GLUCERNA 1.2 @ 50 ML/HR, FWF 200 ML Q6H, WITH PROSOURCE BID. 2. MONITOR WEIGHT CHANGES AND GASTRIC RESIDUALS. -CONSULT RD PRN. 3. RD TO FOLLOW-UP 3-5 DAYS, MODERATE RISK REVIEWED BY KALINA TORIBIO RD
[2022-03-28 14:55] LABS: CARBON DIOXIDE 21.3 mmol/L (21-32); CREATININE 1.4 mg/dL (0.6-1.3); POTASSIUM 3.3 mmol/L (3.5-5.1)
--- NOTE | 2022-03-28 18:00 | NUR ---
TEMP 100.8 TYLENOL GIVEN ORDERED,
--- NOTE | 2022-03-28 18:53 | NUR ---
RECEIVED REPORT FROM AM SHIFT. PATIENT WAS SEEN AND ASSESSED. PATIENT IS INTUBATED WITH ETT SIZE 7.5 AND SECURED WITH A BITING BLOCK ANCHOR-FAST 24cm @ TEETH. PATIENT IS ON VENTILATOR SUPPORT. VENTILATOR PLUGGED IN RED OUTLET. VENTILATOR ALARMS SET APPROPRIATELY AND AUDIBLE TO ENVIRONMENT. AMBU BAG AT BEDSIDE. HEAD OF BED GREATER THAN 30 DEGREES. NOTICED ADEQUATE BILATERAL CHEST RISE AND FALL. PATIENT IS IN NO RESPIRATORY DISTRESS AT THIS TIME. VENT SETTINGS: AC/PRVC RR 18, TARGETED Vt 400, PEEP 5, FiO2 55% WITH SPO2 OF 92%. BILATERAL BREATH SOUNDS ON AUSCULTATION; UPPER LOBES: CRACKLES LOWER LOBES: CRACKLES. SUCTION: SMALL AMOUNT OF WHITE THIN/THICK SECRETIONS FROM ETT AND SMALL WHITE THIN ORALLY. WILL CONTINUE TO MONITOR PATIENT.
--- NOTE | 2022-03-28 19:28 | NUR ---
V/S WITH IN NORMAL LIMIT ,REPORT GIVE TO KEEGAN RN FOR CONTINUITY CARE.
--- NOTE | 2022-03-28 20:00 | NUR ---
0: REC'D PT FROM AM RN MARV TO ASSUME PLAN OF CARE. PT'S ON VENT SETTINGS: AC 18, TV 400, FI02 50%, PEEP 5 SATS >90%. ON LEVO GTTS AT 30MCG TO KEEP SBP >90, AND PROPOFOL GTTS 50MCG FOR SEDATION WITH RASS<3 ALL IVF/DRIPS INFUSING ON THE RIGHT FEMORAL TLC CDI. SBP LOW 100'S. NO APPARENT RESP DISTRESS, AND NO SIGNS OF DISCOMFORT. HAS TUBE FEEDING GLUCERNA 1.2 AT 60CC/HR VIA PEG, CDI. SWOLLEN BOTH ARMS ELEVATED WITH PILLOWS. LEFT EARLOBE SWOLLEN AND REDNESS IS NOTED. PT'S INC TO STOOL AND HAS FC DRAINING ADEQUATE AMOUNT OF URINE COLOR DARK YELLOW. 1999: SHIFT ASSESSMENT DONE SAFETY AND SKIN PROTOCOL ON PROGRESS. TURNED AND REPOSITIONED. REDNESS ON WALTER AREA IS NOTED. APPLIED SKIN PROTECTANT. CONTINUE MONITOR.
[2022-03-28] MEDS: ATORVASTATIN 20 MG TAB PO SCH (20:38)
[2022-03-29] VITALS (28 sets, daily range): BP systolic 46–120; BP diastolic 39–61
--- NOTE | 2022-03-29 00:26 | NUR ---
AT BEDSIDE. PT IS ON FiO2 OF 55% WITH SPO2 OF 99%. TITRATED FiO2 FROM 55% TO 50%. CURRENT SPO2 98%. NO RESPIRATORY DISTRESS NOTED AT THIS TIME. PT IS TOLERATING CHANGES WELL. RN NOTIFIED. WILL CONTINUE TO MONITOR PT.
[2022-03-29] MEDS: metroNIDAZOLE 500 MG/NS PREMIX 100 ML IV SCH ×3 (04:30→20:27)
[2022-03-29] MEDS ORDERED: NOREPINEPHRINE 4 MG/4 ML VIAL IV ONE (04:53)
[2022-03-29] MEDS: NOREPINEPHRINE 16 MG in DEXTROSE 5% 234 ML IV PRN ×3 (04:57→23:50)
--- NOTE | 2022-03-29 05:00 | NUR ---
0500: GIVEN PT A BED BATH. ORAL, AND GT CARE RENDERED. HAD LARGE APPROX 600ML STOOL BROWN IN COLOR. CONTINUE ON LEVO AND PROPOFOL DRIP AT THE SAME RATE. SUCTIONED FREQUENTLY. LOTS OF SECRETIONS, THICK WHITISH COLOR. TURNED EVERY 2 HOURS, SKIN REDNESS ON THE BUTTOCKS AND WALTER AREA ALSO BLISTERS ON THE BUTTOCKS. NO OPEN SORE IS NOTED SEEN BY PLUGGER WORKERALTON JOINER. CONTINUE MONITOR.
--- NOTE | 2022-03-29 05:30 | NUR ---
K LEVEL 2.6 FOOD SERVICES DIRECTORALTON JOINER CALLED AND NOTIFIED, GIVEN ORDER K-RIDER 0645: STARTED TO INFUSE 20MEQS K-RIDER TOTAL OF 2 BAGS IN 20MEQ
[2022-03-29 05:44] LABS: BASOPHILS % (AUTO) 0.1 % (0.0-2.0); EOSINOPHILS # (AUTO) 0.2 K/uL (0-0.4); EOSINOPHILS % (AUTO) 0.6 % (0.0-4.0); HEMOGLOBIN 7.6 g/dL (12.0-18.0); LYMPHOCYTES # (AUTO) 1.5 K/uL (2.0-11.5); LYMPHOCYTES % (AUTO) 6.1 % (20.5-51.1); MEAN CORPUSCULAR HEMOGLOBIN 30 pg (27-31); MEAN CORPUSCULAR HGB CONC 32 g/dL (33-37); MONOCYTES # (AUTO) 0.7 K/uL (0.8-1.0); MONOCYTES % (AUTO) 2.8 % (1.7-9.3); NEUTROPHILS # (AUTO) 22.5 K/uL (1.8-7.7); NEUTROPHILS % (AUTO) 90.4 % (42.2-75.2); PLATELET COUNT (AUTO) 186 K/uL (140-450); RED CELL DISTRIBUTION WIDTH 16.1 % (11.6-13.7); WHITE BLOOD COUNT (AUTO) 24.9 K/uL (4.8-10.8)
[2022-03-29 05:59] LABS: ALBUMIN 1.6 g/dL (3.4-5.0); ANION GAP 4.2 (8-16); CARBON DIOXIDE 25.4 mmol/L (21-32); CREATININE 1.5 mg/dL (0.6-1.3); MAGNESIUM 3.2 mg/dL (1.8-2.4); PHOSPHORUS 1.6 mg/dL (2.5-4.9); TOTAL BILIRUBIN 0.7 mg/dL (0.0-1.0)
[2022-03-29 06:02] LABS: POTASSIUM 2.6 mmol/L (3.5-5.1)
[2022-03-29] MEDS ORDERED: KCL 20 MEQ/WATER INJ PREMIX 200 ML IV PRN (06:10)
[2022-03-29] MEDS: MIDODRINE 5 MG TAB PO SCH ×3 (06:16→19:09)
--- NOTE | 2022-03-29 06:47 | NUR ---
NO SIGNIFICANT CHANGES FROM PREVIOUS SHIFT ASSESSMET. SAME VENT SETTINGS PRESCRIBED, ENRIQUE FAIRLY, SUCTIONED FREQUENTLY. TUBE FEEDING ENRIQUE FAIRLY, NO GASTRIC RESIDUAL. TURNED Q2 GOOD URINE OUTPUT SBP REMAIN IN THE LOW 100'S, CONTINUE SAME RATE OF LEVO GTTS KEEP SEDATED, ON PROPOFOL WITH RASS-3 WILL ENDORSE TO AM RN TO ASSUME PLAN OF CARE.
--- NOTE | 2022-03-29 06:58 | NUR ---
ENDORSED PT TO ALTON RICCI TO ASSUME PLAN OF CARE.
--- NOTE | 2022-03-29 07:00 | NUR ---
RECEIVED PT ON PRVC RR18,TV400,+5, 50%. VENT PLUGGED INTO RED OUTLET AND WHEELS ARE LOCKED. ALARMS ARE SET AND AUDIBLE, AMBUBAG AT BEDSIDE. EQUAL CHEST RISE, COARSE BILATERAL BREATH SOUNDS THROUGHOUT. SATURATION IS 95% ON 50%FIO2. WILL CONTINUE TO MONITOR.
--- NOTE | 2022-03-29 07:05 | NUR ---
Seen and examined by Dr. Smith. New order received.
--- NOTE | 2022-03-29 07:25 | NUR ---
Received pt sedated, ETT to vent settings AC/PRVC TV 400 Rate 18 PEEP 5 FiO2@50%. Sinus rhythm on monitor. G-tube intact and patent infusing Glucerna 1.2 @50ml/hr with free water flush 150 ml Q6h. Kessler catheter intact and draining to BSD. Central line triple lume on right femoral intact and patent infusing Levophed @30mcg/min, Propofol @ 50mgc/kg/min, and K-Mario @50ml/hr. Peripheral IV left AC 20 gauge saline locked. Safety precautions in place.
[2022-03-29] MEDS: levETIRAcetam 100 MG/ML ORASYR GT SCH ×2 (08:09→20:27)
[2022-03-29] MEDS: PANTOPRAZOLE 40 MG INJ VIAL IVP SCH (08:11)
[2022-03-29] MEDS: ASPIRIN 81 MG TAB.CHEW PO SCH (08:12)
[2022-03-29] MEDS: LITHIUM CARBONATE 300 MG TAB PO SCH ×3 (08:12→16:33)
--- NOTE | 2022-03-29 08:50 | NUR ---
Pt with fever. Cooling measures in place. Will continue to monitor.
[2022-03-29] MEDS ORDERED: VANCOMYCIN 750 MG in DEXTROSE 5% 250 ML IV SCH (09:00)
[2022-03-29] MEDS: ACETAMINOPHEN 325 MG TAB PO PRN (09:24)
--- NOTE | 2022-03-29 11:07 | NUR ---
Seen and examined by Dr. Patel. New orders received.
[2022-03-29] MEDS: CEFEPIME 2,000 MG in DEXTROSE 5% 100 ML IV SCH ×2 (11:53→22:11)
--- NOTE | 2022-03-29 13:10 | NUR ---
PT TRANSFERRED TO CT AND BACK SAFELY. RETURNED TO PERVIOUS VENT SETTING. WHEELS LOCKED, VENT PLUGGED INTO RED OUTLET, AMBUBAG AT BEDSIDE. PT RESTING COMFORTABLY.
--- NOTE | 2022-03-29 13:10 | NUR ---
Transferred pt to CT scan. Returned to ICU bed1. Safety precautions in place. Bed locked and in low position.
[2022-03-29] MEDS: VASOPRESSIN 20 UNITS in NACL 0.9% 250 ML IV SCH (13:48)
--- NOTE | 2022-03-29 16:45 | NUR ---
Reported high gastric residual to Dr. Smith. No new orders.
--- NOTE | 2022-03-29 18:51 | NUR ---
Seen and examined by Dr. Ali. Min new orders. Addendum: 03/29/22 at 1852 by Antionette Horn RN Correct time: 8343.
--- NOTE | 2022-03-29 19:28 | NUR ---
Endorsed to maintenance supervisor 2nd shift nurse for continuity of care.
--- NOTE | 2022-03-29 20:00 | NUR ---
1915: REC'D PT FROM ALTON RICCI TO ASSUME PLAN OF CARE. SAME VENT SETTINGS, ENRIQUE FAIRLY. 1935: PT HAD AN EPISODE OF VOMITS YELLOWISH COLOR AFTER SUCTIONING KEEP GT TUBE CLAMPED. PT UNABLE TO TOLERATE FEEDING PER REPORT DUE TO HIGH GASTRIC RESIDUAL. 2000: 250CC GASTRIC RESIDUAL IS NOTED, YELLOWISH COLOR TURNED AND REPOSITIONED. 2100: DUE MEDS GIVEN 2200: ON 100% FI02. PM CARE RENDERED 2300: IVPB GIVEN 0000: STILL HIGH ON GASTRIC RESIDUAL.210CC. TURNED AND REPOSITIONED. 0100: SUCTIONED, NO VOMITS THIS TIME CONTINUE ON VASOPRESSIN AND LEVOPHED DRIP. SBP REMAIN TO LOW 90'S-100'S SAFETY AND SKIN PROTOCOL ON PROGRESS. CONTINUE MONITOR.
[2022-03-29] MEDS: ATORVASTATIN 20 MG TAB PO SCH (20:27)
[2022-03-30] VITALS (36 sets, daily range): BP systolic 57–161; BP diastolic 26–74
--- NOTE | 2022-03-30 01:17 | NUR ---
INCREASED VT TO 500CC DUE TO PATIENT AGANAL BREATHING AND PULLING IN AIR. AFTER MONITORING PT. PT IMPROVED
[2022-03-30] MEDS ORDERED: PHENYLEPHRINE 10 MG/ML VIAL ONE (02:42)
[2022-03-30] MEDS: PHENYLEPHRINE IV PRN ×3 (02:48→18:02)
[2022-03-30] MEDS: NACL 0.9% IV PRN ×3 (02:48→18:02)
--- NOTE | 2022-03-30 03:00 | NUR ---
0300: STARTED ROWAN DRIP AT 50MCG, PT'S SBP BOTTOM DOWN TO LOW 70'S DESPITE MAX ON VASOPRESSIN AND LEVOPHED. FIO2 REMAIN ON 75% ENRIQUE FAIRLY. 0400: PARTIAL BATH RENDERED. HAD VERY LARGE COPIOUS AMOUNT OF MUCOIDAL STOOL APPROX 900CC. 0600: URINE OUTPUT 100CC DURING SHIFT.
[2022-03-30] MEDS: metroNIDAZOLE 500 MG/NS PREMIX 100 ML IV SCH ×2 (04:17→12:04)
[2022-03-30 05:28] LABS: ALBUMIN 1.4 g/dL (3.4-5.0); ANION GAP 6.9 (8-16); ANION GAP 7.1 (8-16); CARBON DIOXIDE 23.8 mmol/L (21-32); CREATININE 2.2 mg/dL (0.6-1.3); MAGNESIUM 3.4 mg/dL (1.8-2.4); PHOSPHORUS 4.2 mg/dL (2.5-4.9); POTASSIUM 3.9 mmol/L (3.5-5.1); TOTAL BILIRUBIN 1.2 mg/dL (0.0-1.0)
[2022-03-30 05:37] LABS: HEMATOCRIT 23.8 % (36-52); HEMOGLOBIN 7.2 g/dL (12.0-18.0); MEAN CORPUSCULAR HEMOGLOBIN 30 pg (27-31); MEAN CORPUSCULAR HGB CONC 30 g/dL (33-37); MEAN CORPUSCULAR VOLUME 98.5 fL (80-94); PLATELET COUNT (AUTO) 184 K/uL (140-450); RED BLOOD CELL COUNT(AUTO) 2.41 MIL/uL (4.20-6.10); RED CELL DISTRIBUTION WIDTH 16.6 % (11.6-13.7)
--- NOTE | 2022-03-30 05:40 | NUR ---
0540: LAB CALLED AND NOTIFIED HGB OF 7.2. 0545: NOTIFIED DR. PARDO AWAITING FOR HIM TO SEE THE PT THIS AM INCREASED ROWAN TO 100MCG. SBP 70'S
[2022-03-30 05:43] LABS: WHITE BLOOD COUNT (AUTO) 29.8 K/uL (4.8-10.8)
[2022-03-30] MEDS: MIDODRINE 5 MG TAB PO SCH ×3 (06:27→18:21)
[2022-03-30 06:29] LABS: BASOPHILS % (AUTO) 0.1 % (0.0-2.0); LYMPHOCYTES # (AUTO) 0.6 K/uL (2.0-11.5); MONOCYTES # (AUTO) 0.9 K/uL (0.8-1.0); MONOCYTES % (AUTO) 2.8 % (1.7-9.3); NEUTROPHILS # (AUTO) 28.5 K/uL (1.8-7.7); NEUTROPHILS % (AUTO) 95.1 % (42.2-75.2)
--- NOTE | 2022-03-30 06:43 | NUR ---
NO SIGNIFICANT CHANGES FROM PREVIOUS SHIFT ASSESSMENT. CONTINUE ON ROWAN, VASOPRESSIN, AND LEVOPHED DRIP. WILL ENDORSE TO AM RN TO ASSUME PLAN OF CARE.
--- NOTE | 2022-03-30 07:07 | NUR ---
ENDORSED PT TO ALTON RICCI TO ASSUME PLAN OF CARE. ENDORSED TO F/U HGB OF 7.2 TO /DR. PARDO
--- NOTE | 2022-03-30 07:30 | NUR ---
Received pt in bed with eyes closed. ETT to vent settings AC/PRVC TV550 rate 18 PEEP 5 FiO2@75%. G-tube intact with high gastric residual. Feeding off. Kessler catheter intact and draining to BSD. Central line on right femoral intact and patent infusing Levophed @30mcg/min, Vasopressin @0.03 unit/min, Hi-synephrine @100mcg/min, and NS @TKO. Peripheral IV on LAC 20 gauge saline locked. Safety precautions in place.
--- NOTE | 2022-03-30 08:06 | NUR ---
RECEIVED ON A [employer] R860 VENTILATOR PLUGGED INTO RED OUTLET TOLERATING WELL WITHOUT ADVERSE REACTIONS NOTED TO AN ENDOTRACHEAL TUBE #7.5 SECURED AT 24cm TEETH/GUM LINE WITH AN ANCHOR FAST CUFF PRESSURE CHECKED NOTED AMBU BAG AT BEDSIDE SEDATED RESTING COMFORTABLY GOOD CHEST RISE ENDOTRACHEAL SUCTION FOR LARGE THICK YELLOW WITH BLOOD TINGE SECRETIONS AIRWAY PATENT REVIEWED ARDS PROTOCOL B/P SYSTOLIC 102 mmHg INCREASED PEEP TO 8 cmH2O TITRATED FIO2 TO 65% KEIRY/ICU AWARE
[2022-03-30 08:08] LABS: LYMPHOCYTES % (MANUAL) 2 % (20-46); MONOCYTES % (MANUAL) 3 % (5-12)
[2022-03-30] MEDS: PANTOPRAZOLE 40 MG INJ VIAL IVP SCH (08:25)
[2022-03-30] MEDS: VASOPRESSIN 20 UNITS in NACL 0.9% 250 ML IV SCH (08:54)
[2022-03-30] MEDS: LITHIUM CARBONATE 300 MG TAB PO SCH ×3 (09:00→16:36)
--- NOTE | 2022-03-30 09:15 | NUR ---
Seen and examined by Dr. Fallon. New orders received.
--- NOTE | 2022-03-30 09:41 | NUR ---
CXR done at bedside.
[2022-03-30] MEDS ORDERED: levETIRAcetam 500 MG in NACL 0.9% 100 ML IV SCH (10:00)
[2022-03-30] MEDS: ASPIRIN 81 MG TAB.CHEW PO SCH (10:04)
--- NOTE | 2022-03-30 10:34 | NUR ---
Seen and examined by Dr. Smith.
--- NOTE | 2022-03-30 10:52 | NUR ---
SEDATED RESTING WELL GOOD CHEST RISE ENDOTRACHEAL SUCTION FOR MODERATE THICK YELLOW WITH BLOOD TING E SECRETIONS AIRWAY PATENT REVIEWED SYSTOLIC B/P AT 89 mmHg DECREASED PEEP TO 5 cmH2O KEIRY/BLUE LINE OPERATOR NOTIFIED SKEIN BANDER TO MONITOR
[2022-03-30] MEDS: CEFEPIME 2,000 MG in DEXTROSE 5% 100 ML IV SCH (10:59)
[2022-03-30] MEDS: NOREPINEPHRINE 16 MG in DEXTROSE 5% 234 ML IV PRN (11:27)
--- NOTE | 2022-03-30 11:37 | NUR ---
CALLED DR. ELISABETH ARRIOLA AT [facility] [phone] TO REVIEW ABG RESULTS JOSIAS/EXCHANGE TO KAVYA QUEZADA MD; PATIENT INFORMATION AND CALL BACK NUMBER GIVEN
--- NOTE | 2022-03-30 11:39 | NUR ---
CALL BACK FROM DR. ELISABETH ARRIOLA REVIEWED ABG RESULTS, VENTILATOR SETTINGS, DIAGNOSTIC MONITORING READINGS AND CURRENT SEDATION VORBO: KEEP ON CURRENT VENTILATOR SETTINGS Addendum: 03/30/22 at 1314 by Dilip Desai RT VORBO = GEREMIAS
[2022-03-30] MEDS: ACETAMINOPHEN 325 MG TAB PO PRN (12:04)
--- NOTE | 2022-03-30 12:10 | NUR ---
EEG done at bedside.
--- NOTE | 2022-03-30 12:49 | NUR ---
Ultrasound done at bedside.
[2022-03-30] MEDS ORDERED: METOCLOPRAMIDE 10 MG/2 ML INJ VIAL IVP SCH (13:00)
--- NOTE | 2022-03-30 13:23 | NUR ---
SEDATED GOOD CHEST RISE ENDOTRACHEAL SUCTION FOR MODERATE SCATTERED THIN YELLOW WITH BLOOD TINGE SECRETIONS AIRWAY PATENT
--- NOTE | 2022-03-30 15:55 | NUR ---
EQUAL CHEST RISE GOOD INSPIRATORY AERATION THROUGHOUT BILATERAL LUNG REYES AIRWAY PATENT; EARLIER TEMP READING AT 101.0 PER KEIRY/OCCUPATIONAL THERAPY TEACHER COOLING MEASURES ACTIVATED; DIAGNOSTIC SATURATION NOT READING DUE TO COLD EXTREMITIES MOVED PULSE OXIMETER PROBE TO EAR; HEMATOLOGY 03/30 RBC 2.4 HgB 7.2 Hct 23.8; 1 PRBC CURRENTLY INFUSING
--- NOTE | 2022-03-30 17:00 | NUR ---
Dr. Denney at bedside examining pt. Reported fever, increased WBC, and low urine output.
--- NOTE | 2022-03-30 17:09 | NUR ---
Seen and examined by Dr. Colbert. New order received.
--- NOTE | 2022-03-30 17:15 | NUR ---
EKG done at bedside.
--- NOTE | 2022-03-30 17:43 | NUR ---
STABLE GOOD CHEST RISE, CLEAR INSPIRATORY BREATH SOUNDS. KEISHA W[place]
--- NOTE | 2022-03-30 18:53 | NUR ---
Informed Dr. Smith regarding low BP. New order received.
[2022-03-30] MEDS ORDERED: DOPamine 400 MG/D5W PREMIX 250 ML IV PRN (18:55)
--- NOTE | 2022-03-30 18:57 | NUR ---
PHONE CALL TO PTS CONSERVATOR,CSC ENRICO MURPHY, NO ANSWER,LEFT MESSAGE TO CALL ENDOSCOPY SPECIALTY TECHNICIAN ; ALSO VOICEMAIL SAYS TO PRESS "0"(ZERO) FOR EMERGENCY,WHICH ENDOSCOPY SPECIALTY TECHNICIAN DID, STILL NO ANSWER.AWAITING CALL BACK
[2022-03-30] MEDS ORDERED: DOPamine 400 MG/D5W PREMIX 250 ML IV ONE (18:59)
[2022-03-30 19:10] LABS: LYMPHOCYTES # (AUTO) 1.5 K/uL (2.0-11.5); MONOCYTES # (AUTO) 1.4 K/uL (0.8-1.0)
[2022-03-30 19:15] LABS: EOSINOPHILS % (AUTO) 0.1 % (0.0-4.0); HEMATOCRIT 28.3 % (36-52); HEMOGLOBIN 7.7 g/dL (12.0-18.0); LYMPHOCYTES % (AUTO) 5.1 % (20.5-51.1); MEAN CORPUSCULAR HEMOGLOBIN 28 pg (27-31); MEAN CORPUSCULAR HGB CONC 27 g/dL (33-37); MEAN CORPUSCULAR VOLUME 103.4 fL (80-94); MONOCYTES % (AUTO) 4.5 % (1.7-9.3); NEUTROPHILS # (AUTO) 27.4 K/uL (1.8-7.7); NEUTROPHILS % (AUTO) 90.3 % (42.2-75.2); PLATELET COUNT (AUTO) 114 K/uL (140-450); RED BLOOD CELL COUNT(AUTO) 2.74 MIL/uL (4.20-6.10); RED CELL DISTRIBUTION WIDTH 23.2 % (11.6-13.7)
--- NOTE | 2022-03-30 19:20 | NUR ---
Endorsed to senior cobol developer nurse Annie for continuity of care.
--- NOTE | 2022-03-30 19:22 | NUR ---
PHONE CALL TO DR ARRIOLA, UPDATED ON PTS PRESENT CONDITION.MADE AWARE PT ALREADY ON 4 VASOPRESSORS (LEVOPHED,VASOPRESSIN,ROWAN SYNEPHRINE AND DOPAMINE), PER PHYSICIAN, NO MORE ADDITIONAL PRESSORS.
--- NOTE | 2022-03-30 19:24 | NUR ---
PHONE CALL FROM DR PARDO,PRIMARY CARE PHYSICIAN AND DR ARRIOLA,PULMO CRIBBING SETTER, BOTH PHYSICIANS CHANGED THE CODE STATUS FROM FULL CODE TO DNR.THEY WILL SIGN 2 PHYSICIAN CONSENT.
[2022-03-30] MEDS ORDERED: NACL 0.9% 500 ML IV ONE (19:25)
[2022-03-30 19:27] LABS: WHITE BLOOD COUNT (AUTO) 30.3 K/uL (4.8-10.8)
--- NOTE | 2022-03-30 19:37 | NUR ---
1919: REC'D PT FROM ALTON RICCI. PT'S ON MAX OF PRESSORS; VASOPRESSIN, ROWAN AND LEVOPHED, BOLUS ALSO GIVEN 500CC. AGONAL BREATHING, DESATS TO 70'S RT AT THE BEDSIDE. PUPILS NON REACTIVE, FIXED AND NO GAG REFLEX. 1923: NOTIFIED PT'S CHANGED OF HEALTH STATUS. PT'S DNR NOW. FOUNDRY TECHNICIANALTON JOINER GOT THE ORDER FROM MD'S. CONTINUE MONITOR
--- NOTE | 2022-03-30 19:40 | NUR ---
1939: CRIMINAL ANALYST ALTA PRONOUNCED . PT NO PULSE WITNESSED PER DOPPLER, NO HEART BEAT, NO VITAL SIGNS, NO RESPIRATIONS, NOT BREATHING, ASYSTOLE ON THE MONITOR. ALL MD'S (CONSULTS) MADE AWARE. CONSERVATOR WAS CONTACTED BY ASSISTANT MANAGERALTON JOINER. 2036: CALLED [facility] AND SPOKE TO NIELS THE MILL CONTROLLER, GIVEN ID NO: [id number]. ACCDG TO [employer] [facility] MILL CONTROLLER SOMEONE FROM [facility] WILL CALL TO F/U.
--- NOTE | 2022-03-30 20:30 | NUR ---
PHONE CALL TO TYRONE SALINAS ([phone]), STABLE CLEANER [facility],PERSON TO NOTIFY.MADE AWARE OF PTS PASSING AWAY, SHE SAID SHE WILL CALL LATER FOR MORTUARY.
[2022-03-30] MEDS ORDERED: PIPERACILLIN/TAZOBACTAM 4.5 GM in DEXTROSE 5% 100 ML IV SCH (21:00)
--- NOTE | 2022-03-30 21:00 | NUR ---
2052: CALLED [facility] AND SPOKE TO EHSAN AND SAID SOMEONE WILL CALL 2100: [facility] CALLED RADHA KERN SAID PT'S NOT CANDIDATE FOR ORGAN DONOR DUE TO SEPSIS REFERRAL ID NO: [id number]
--- NOTE | 2022-03-30 21:22 | NUR ---
2121: OIM ARCHITECT MIA NORIEGA CALLED AND RELEASING THE BODY TO MORTUARY.
--- NOTE | 2022-03-30 22:12 | NUR ---
PT'S CLEAN, BODY BAGGED AND JUST WAITING FOR THE MORTUARY TO DEMAND INSPECTOR THE PT. PAPER WORKS DONE BY SYSTEM CONSULTANTALTON JOINER.
--- NOTE | 2022-03-30 23:23 | NUR ---
2323: PT PICKED UP BY [facility]. RELEASED PAPERS SIGNED BY [facility] REP.
== END 2022-03-30 23:30 | DRG 720 ==
LOC: MED 10:46 → MTU 14:39 → MIC 03-23 06:30 → MTU 03-24 10:34 → MIC 03-25 22:45
PROVIDERS: ADMIT Family Medicine; ATTEND Family Medicine
PROC: 4A00X4Z Measurement of Central Nervous Electrical Activity, External Approach (ICD-10-PCS; 2022-03-25)
PROC: 5A1945Z Respiratory Ventilation, 24-96 Consecutive Hours (ICD-10-PCS; principal; 2022-03-26)
PROC: 0BH17EZ Insertion of Endotracheal Airway into Trachea, Via Natural or Artificial Opening (ICD-10-PCS; 2022-03-26)
PROC: 30233N1 Transfusion of Nonautologous Red Blood Cells into Peripheral Vein, Percutaneous Approach (ICD-10-PCS; 2022-03-30)
DX: A40.0 Sepsis due to streptococcus, group A (principal); J96.01 Acute respiratory failure with hypoxia; R65.21 Severe sepsis with septic shock; G93.41 Metabolic encephalopathy; J15.1 Pneumonia due to Pseudomonas; E87.8 Other disorders of electrolyte and fluid balance, not elsewhere classified; E83.51 Hypocalcemia; E83.41 Hypermagnesemia; R00.0 Tachycardia, unspecified; D64.9 Anemia, unspecified; E87.1 Hypo-osmolality and hyponatremia; R77.8 Other specified abnormalities of plasma proteins; Z20.822 Contact with and (suspected) exposure to COVID-19; I25.10 Atherosclerotic heart disease of native coronary artery without angina pectoris; D72.829 Elevated white blood cell count, unspecified; I51.7 Cardiomegaly; R73.9 Hyperglycemia, unspecified; G93.1 Anoxic brain damage, not elsewhere classified; Y95 Nosocomial condition; G40.909 Epilepsy, unspecified, not intractable, without status epilepticus; Z95.1 Presence of aortocoronary bypass graft; Z93.1 Gastrostomy status
CPT/HCPCS: 31500; 36415; 36600; 70450; 71045; 71250; 76770; 80048; 80053; 80178; 80202; 81003; 82150; 82550; 82803; 82948; 83036; 83605; 83690; 83735; 83880; 84100; 84436; 84439; 84443; 84479; 84484; 85025; 85610; 85730; 86886; 86900; 86901; 86920; 87040; 87070; 87081; 87086; 87186; 87205; 92526; 93005; 94002; 94003; 96360; 99285; C9113; J0171; J0692; J0696; J1265; J1644; J1953; J2370; J2543; J2704; J2765; J3010; J3370; J3480; J3490; J7030; J7060; P9016; Q0092